=== PATIENT | female | born 1980 | race Caucasian/White ===

== ENCOUNTER → 2016-06-25 | Outpatient (CLI) | payer BC ==
--- NOTE | 2016-06-28 08:23 | MM ---
Reason for exam: clinical finding. Baseline mammogram. History: Took hormonal contraceptives for 2 years beginning at age 23. Indicated problem(s): palpable abnormality in the left breast. Physical Findings: Nurse Summary: 0.5cm nodule in the left breast at 12, 1 and 5 o'clock (nurse kp). MG Diagnostic Mammo w CAD RADHA Bilateral CC and MLO view(s) were taken. ML and spot compression MLO view(s) were taken of the right breast. Finding: There is a typically benign equal density (isodense), partially obscured mass in the right breast. There is no discrete abnormality at areas in left breast marked by BB. These results were verbally communicated with the patient and result sheet given to the patient on 06/24/16. ASSESSMENT: Probably benign, BI-RAD 3 RECOMMENDATION: Follow-up diagnostic mammogram of both breasts in 6 months. Ultrasound of the left breast in 6 months.
--- NOTE | 2016-06-28 08:25 | USB ---
Reason for exam: clinical finding. History: Took hormonal contraceptives for 2 years beginning at age 23. Indicated problem(s): palpable abnormality in the left breast. US Breast LT Left breast ultrasound including all four quadrants, the retroareolar region and axilla demonstrates a 8 x 4 x 8mm lobular, cystic lesion at 12 o'clock, a 5 x 3 x 6mm mixed lesion at 1 o'clock, a 7 x 3 x 5mm oval, mixed lesion at 1 o'clock, a 7 x 2 x 3mm oval, mixed lesion at 4 o'clock and a 7 x 3 x 6mm oval, cystic lesion at 10 o'clock. These results were verbally communicated with the patient and result sheet given to the patient on 06/25/16. ASSESSMENT: Probably benign, BI-RAD 3 RECOMMENDATION: Ultrasound of the left breast in 6 months.
== END | disposition home or self-care (01) ==
LOC: RADMAMWWP 15:13
PROVIDERS: ATTEND Internal Medicine
DX: N63 Unspecified lump in breast (principal)
CPT/HCPCS: 76641; G0204

== ENCOUNTER → 2017-01-10 | Outpatient (CLI) | payer BC ==
--- NOTE | 2017-01-10 11:51 | XR ---
EXAMINATION TYPE: XR orbit detect foreign body DATE OF EXAM: 01/10/2017 COMPARISON: NONE HISTORY: Pre-MRI clearance. Metal injury per patient. TECHNIQUE: Cottrell and Pritesh frontal view as well as true lateral view of orbits is performed. FINDINGS: No metallic intraorbital foreign body is seen to prevent MRI study. IMPRESSION: As above
== END | disposition home or self-care (01) ==
LOC: RADXRMAIN 11:07
PROVIDERS: ATTEND Orthopaedic Surgery
DX: Z01.818 Encounter for other preprocedural examination (principal)
CPT/HCPCS: 70030

== ENCOUNTER → 2017-03-24 | Outpatient (CLI) | payer BC ==
--- NOTE | 2017-03-25 07:04 | MM ---
Reason for exam: follow-up at short interval from prior study. Last mammogram was performed 9 months ago. History: Took hormonal contraceptives for 2 years beginning at age 23. Physical Findings: Nurse did not find any significant physical abnormalities on exam. MG Diagnostic Mammo w CAD RADHA Bilateral CC, MLO, LM, spot compression MLO, and spot compression CC view(s) were taken. Prior study comparison: June 25, 2016, bilateral MG diagnostic mammo w CAD RADHA. The breast tissue is heterogeneously dense. This may lower the sensitivity of mammography. Nodular areas of asymmetric density in both upper and lower breasts on the MLO view appear increased from prior. However, on additional views, the finding disperse compatible with superior position shadows. These results were verbally communicated with the patient and result sheet given to the patient on 03/24/17. ASSESSMENT: Negative, BI-RAD 1 RECOMMENDATION: Routine screening mammogram of both breasts at age 41. (unless clinical indication to start sooner)
== END ==
LOC: RADMAMWWP 14:15
PROVIDERS: ATTEND Internal Medicine
DX: R92.8 Other abnormal and inconclusive findings on diagnostic imaging of breast (principal)

== ENCOUNTER 2019-02-01 22:03 | Emergency (ER) | payer BC ==
[2019-02-01 22:47] LABS: Basophils # (A) 0.1 k/uL (0-0.2); Basophils % (A) 1 %; Eosinophils # (A) 0.1 k/uL (0-0.7); Eosinophils % (A) 1 %; HCT 41.5 % (34.0-46.0); HGB 13.9 gm/dL (11.4-16.0); Lymphocytes # (A) 2.4 k/uL (1.0-4.8); Lymphocytes % (A) 16 %; MCH 32.4 pg (25.0-35.0); MCHC 33.5 g/dL (31.0-37.0); MCV 96.6 fL (80.0-100.0); Mean Platelet Volume 5.8; Monocytes # (A) 0.8 k/uL (0-1.0); Monocytes % (A) 5 %; Neutrophils # (A) 11.2 k/uL (1.3-7.7); Neutrophils % (A) 75 %; Platelet Count 284 k/uL (150-450); RBC 4.29 m/uL (3.80-5.40); WBC 14.9 k/uL (3.8-10.6)
[2019-02-01 22:55] LABS: ALT 20 U/L (9-52); AST 21 U/L (14-36); African American GFR (CKD) >90 (>60 ml/min/1.73 sqM); Albumin 4.5 g/dL (3.5-5.0); Alkaline Phosphatase 76 U/L (38-126); Anion Gap 12 mmol/L; Blood Urea Nitrogen 7 mg/dL (7-17); Calcium 9.4 mg/dL (8.4-10.2); Carbon Dioxide 24 mmol/L (22-30); Chloride 103 mmol/L (98-107); Glucose 115 mg/dL (74-99); INR 0.9 (<1.2); Partial Thromboplastin Time 28.4 sec (22.0-30.0); Potassium 3.8 mmol/L (3.5-5.1); Prothrombin Time 9.5 sec (9.0-12.0); Sodium 139 mmol/L (137-145); Total Bilirubin 0.3 mg/dL (0.2-1.3); Total Protein 7.9 g/dL (6.3-8.2)
[2019-02-01 23:08] LABS: Appearance,Urine Clear (Clear); Bilirubin,Urine Negative (Negative); Blood,Urine Negative (Negative); Color,Urine Light Yellow; Glucose,Urine (UA) Negative (Negative); Ketones,Urine Negative (Negative); Leukocyte Esterase,Urine Small (Negative); Nitrite,Urine Negative (Negative); PH, Urine 5.5 (5.0-8.0); Protein,Urine Negative (Negative); RBC,Urine 1 /hpf (0-5); Specific Gravity,Urine 1.003 (1.001-1.035); Squamous Epithelial Cell,Urine 2 /hpf (0-4); Urobilinogen,Urine <2.0 mg/dL (<2.0); WBC,Urine 5 /hpf (0-5)
--- NOTE | 2019-02-01 23:41 | CT ---
EXAMINATION TYPE: CT abdomen pelvis w con DATE OF EXAM: 02/01/2019 COMPARISON: None HISTORY: Patient presents with RLQ pain and fever. CT DLP: 1465.4 mGycm Automated exposure control for dose reduction was used. TECHNIQUE: Helical acquisition of images was performed from the lung bases through the pelvis. CONTRAST: Performed without Oral Contrast and with IV Contrast, patient injected with 100mL mL of Isovue 300. FINDINGS: Lung bases are clear of consolidation. There is no pleural effusion. Heart size is normal. There is n o pericardial effusion. Liver spleen stomach pancreas gallbladder appear normal. Bile ducts are not dilated. There is no adrenal mass. Kidneys show satisfactory contrast opacification. There is no hydronephrosi s. Ureters are not dilated. There is no retroperitoneal adenopathy. Bladder distends smoothly. There is some free fluid in the pelvis. There are multiple cysts on the left ovary that measure up to 3.7 c m. Uterus is tilted to the right side. There is 3.3 cm cyst on the right ovary. There is no inguinal hernia. There is no mesenteric edema. There is no evidence of a bowel obstructio n. Appendix appears normal. There is no evidence of free air. The lumbar spine is intact. Bony pelvis appears intact. IMPRESSION: BILATERAL LARGE OVARIAN CYSTS. FREE FLUID IN THE CUL-DE-SAC. NORMAL APPENDIX. FLUID HAS LOW DENSITY a nd does NOT APPEAR TO BE HEMORRHAGIC. THIS COULD RELATE TO PID IN THIS PATIENT WITH A FEVER..
[2019-02-02] MEDS ORDERED: cefTRIAXone 250 MG VIAL IM STA (00:13)
[2019-02-02] MEDS ORDERED: metroNIDAZOLE 500 MG TAB PO STA (00:13)
[2019-02-02] MEDS ORDERED: DOXYCYCLINE 100 MG CAP PO STA (00:13)
--- NOTE | 2019-02-02 00:16 | ED ---
General Adult HPI - General Chief complaint: Urogenital Stated complaint: fever, cramps Time Seen by Provider: 02/01/19 22:49 Source: patient Mode of arrival: ambulatory Limitations: no limitations - History of Present Illness Initial comments: 38-year-old female patient presents to the emergency department today for evaluation of pelvic pain, low back pain, and fever. Patient's a she's had symptoms for the last 2-3 days. Patient denies any hematuria, dysuria, urinary frequency, urinary urgency. Denies any abnormal vaginal bleeding or discharge. Patient is concerned because she did have a one night stand a couple of weeks ago and is concerned she may have contracted a sexually transmitted infection. She denies any nausea, vomiting, constipation, or diarrhea. Denies any history of abdominal surgery. Patient denies any recent rash, shortness breath, chest pain, numbness, tingling, dizziness, weakness, headache, visual changes, or any other complaints. - Related Data Previous Rx's Medication Instructions Recorded Acetaminophen-Codeine 300-30mg 1 each PO Q6H PRN #10 tablet 03/03/15 [Tylenol #3] Ofloxacin 0.3% Ophth Soln [Ocuflox 2 drops RIGHT EYE QID 7 Days ml 03/03/15 Ophth Soln] Doxycycline [Vibramycin] 100 mg PO BID 14 Days #28 capsule 02/02/19 Allergies Allergy/AdvReac Type Severity Reaction Status Date / Time grass pollen Allergy Itching Verified 02/01/19 22:08 Review of Systems ROS Statement: Those systems with pertinent positive or pertinent negative responses have been documented in the HPI. ROS Other: All systems not noted in ROS Statement are negative. Past Medical History Past Medical History: No Reported History History of Any Multi-Drug Resistant Organisms: None Reported Past Surgical History: Tubal Ligation Additional Past Surgical History / Comment(s): vocal cord/polyps removed ectopic. PRC Past Psychological History: Anxiety, Depression Smoking Status: Current every day smoker Past Alcohol Use History: Occasional Past Drug Use History: Marijuana General Exam Limitations: no limitations General appearance: alert, in no apparent distress, other (Physical well- developed, well-nourished adult female patient in no acute distress. Vital signs upon presentation are temperature 99.5F, pulse 1:15, respirations 20, blood pressure 160/80, pulse ox 99% on room air.) Eye exam: Present: normal appearance, PERRL, EOMI. Absent: scleral icterus, conjunctival injection, periorbital swelling ENT exam: Present: normal exam, normal oropharynx, mucous membranes moist Respiratory exam: Present: normal lung sounds bilaterally. Absent: respiratory distress, wheezes, rales, rhonchi, stridor Cardiovascular Exam: Present: regular rate, normal rhythm, normal heart sounds. Absent: systolic murmur, diastolic murmur, rubs, gallop, clicks GI/Abdominal exam: Present: soft, tenderness (Right lower quadrant tenderness), normal bowel sounds. Absent: distended, guarding, rebound, rigid External exam: Present: normal external exam Speculum exam: Present: erythema, cervical discharge (Yellow, frothy) By manual exam: Present: cervical motion tenderness, adnexal tenderness Neurological exam: Present: alert, oriented X3, CN II-XII intact Psychiatric exam: Present: normal affect Skin exam: Present: warm, dry, intact, normal color. Absent: rash Course Vital Signs 02/01/19 02/02/19 22:05 00:49 Temperature 99.5 F 99.0 F Pulse Rate 115 H 102 H Respiratory 20 18 Rate Blood Pressure 160/80 136/78 O2 Sat by Pulse 99 100 Oximetry Medical Decision Making - Medical Decision Making 38-year-old female patient presented to the emergency department today for evaluation of pelvic pain and fever. Physical examination did reveal right lower quadrant tenderness. Labs reviewed and did reveal white blood cell count of 14.9. CT abdomen and pelvis was obtained and did show free fluid in the cul-de-sac. Normal appendix. Given patient's concern for sexually transmitted infection, pelvic exam was performed, did reveal vaginal discharge cervical motion tenderness and bilateral adnexal tenderness. Patient was positive for Trichomonas. We did send cultures for gonorrhea and chlamydia. Given patient's symptoms we will treat for pelvic inflammatory disease. She was given 250 mg IM Rocephin, 2000 mg of Flagyl by mouth, and started on doxycycline. She'll be discharged to follow-up with gynecology for further evaluation. Return parameters were discussed in detail. She verbalizes understanding and agrees with this plan. - Lab Data Result diagrams: 02/01/19 22:33 02/01/19 22:33 Lab Results 02/01/19 02/01/19 02/01/19 Range/Units 22:10 22:10 22:33 WBC 14.9 H (3.8-10.6) k/uL RBC 4.29 (3.80-5.40) m/uL Hgb 13.9 (11.4-16.0) gm/dL Hct 41.5 (34.0-46.0) % MCV 96.6 (80.0-100.0) fL MCH 32.4 (25.0-35.0) pg MCHC 33.5 (31.0-37.0) g/dL RDW 13.0 (11.5-15.5) % Plt Count 284 (150-450) k/uL Neutrophils % 75 % Lymphocytes % 16 % Monocytes % 5 % Eosinophils % 1 % Basophils % 1 % Neutrophils # 11.2 H (1.3-7.7) k/uL Lymphocytes # 2.4 (1.0-4.8) k/uL Monocytes # 0.8 (0-1.0) k/uL Eosinophils # 0.1 (0-0.7) k/uL Basophils # 0.1 (0-0.2) k/uL PT (9.0-12.0) sec INR (<1.2) APTT (22.0-30.0) sec Sodium (137-145) mmol/L Potassium (3.5-5.1) mmol/L Chloride (98-107) mmol/L Carbon Dioxide (22-30) mmol/L Anion Gap mmol/L BUN (7-17) mg/dL Creatinine (0.52-1.04) mg/dL Est GFR (CKD-EPI)AfAm (>60 ml/min/1.73 sqM) Est GFR (CKD-EPI)NonAf (>60 ml/min/1.73 sqM) Glucose (74-99) mg/dL Plasma Lactic Acid Denzel (0.7-2.0) mmol/L Calcium (8.4-10.2) mg/dL Total Bilirubin (0.2-1.3) mg/dL AST (14-36) U/L ALT (9-52) U/L Alkaline Phosphatase (38-126) U/L Total Protein (6.3-8.2) g/dL Albumin (3.5-5.0) g/dL Urine Color Light Yellow Urine Appearance Clear (Clear) Urine pH 5.5 (5.0-8.0) Ur Specific [place] 1.003 (1.001-1.035) Urine Protein Negative (Negative) Urine Glucose (UA) Negative (Negative) Urine Ketones Negative (Negative) Urine Blood Negative (Negative) Urine Nitrite Negative (Negative) Urine Bilirubin Negative (Negative) Urine Urobilinogen <2.0 (<2.0) mg/dL Ur Leukocyte Esterase Small H (Negative) Urine RBC 1 (0-5) /hpf Urine WBC 5 (0-5) /hpf Ur Squamous Epith Cells 2 (0-4) /hpf Urine HCG, Qual Not Detected (Not Detectd) Trichomonas Ag (Rapid) (Negative) 02/01/19 02/01/19 02/01/19 Range/Units 22:33 22:33 22:33 WBC (3.8-10.6) k/uL RBC (3.80-5.40) m/uL Hgb (11.4-16.0) gm/dL Hct (34.0-46.0) % MCV (80.0-100.0) fL MCH (25.0-35.0) pg MCHC (31.0-37.0) g/dL RDW (11.5-15.5) % Plt Count (150-450) k/uL Neutrophils % % Lymphocytes % % Monocytes % % Eosinophils % % Basophils % % Neutrophils # (1.3-7.7) k/uL Lymphocytes # (1.0-4.8) k/uL Monocytes # (0-1.0) k/uL Eosinophils # (0-0.7) k/uL Basophils # (0-0.2) k/uL PT 9.5 (9.0-12.0) sec INR 0.9 (<1.2) APTT 28.4 (22.0-30.0) sec Sodium 139 (137-145) mmol/L Potassium 3.8 (3.5-5.1) mmol/L Chloride 103 (98-107) mmol/L Carbon Dioxide 24 (22-30) mmol/L Anion Gap 12 mmol/L BUN 7 (7-17) mg/dL Creatinine 0.58 (0.52-1.04) mg/dL Est GFR (CKD-EPI)AfAm >90 (>60 ml/min/1.73 sqM) Est GFR (CKD-EPI)NonAf >90 (>60 ml/min/1.73 sqM) Glucose 115 H (74-99) mg/dL Plasma Lactic Acid Denzel 1.0 (0.7-2.0) mmol/L Calcium 9.4 (8.4-10.2) mg/dL Total Bilirubin 0.3 (0.2-1.3) mg/dL AST 21 (14-36) U/L ALT 20 (9-52) U/L Alkaline Phosphatase 76 (38-126) U/L Total Protein 7.9 (6.3-8.2) g/dL Albumin 4.5 (3.5-5.0) g/dL Urine Color Urine Appearance (Clear) Urine pH (5.0-8.0) Ur Specific [place] (1.001-1.035) Urine Protein (Negative) Urine Glucose (UA) (Negative) Urine Ketones (Negative) Urine Blood (Negative) Urine Nitrite (Negative) Urine Bilirubin (Negative) Urine Urobilinogen (<2.0) mg/dL Ur Leukocyte Esterase (Negative) Urine RBC (0-5) /hpf Urine WBC (0-5) /hpf Ur Squamous Epith Cells (0-4) /hpf Urine HCG, Qual (Not Detectd) Trichomonas Ag (Rapid) (Negative) 02/02/19 Range/Units 00:29 WBC (3.8-10.6) k/uL RBC (3.80-5.40) m/uL Hgb (11.4-16.0) gm/dL Hct (34.0-46.0) % MCV (80.0-100.0) fL MCH (25.0-35.0) pg MCHC (31.0-37.0) g/dL RDW (11.5-15.5) % Plt Count (150-450) k/uL Neutrophils % % Lymphocytes % % Monocytes % % Eosinophils % % Basophils % % Neutrophils # (1.3-7.7) k/uL Lymphocytes # (1.0-4.8) k/uL Monocytes # (0-1.0) k/uL Eosinophils # (0-0.7) k/uL Basophils # (0-0.2) k/uL PT (9.0-12.0) sec INR (<1.2) APTT (22.0-30.0) sec Sodium (137-145) mmol/L Potassium (3.5-5.1) mmol/L Chloride (98-107) mmol/L Carbon Dioxide (22-30) mmol/L Anion Gap mmol/L BUN (7-17) mg/dL Creatinine (0.52-1.04) mg/dL Est GFR (CKD-EPI)AfAm (>60 ml/min/1.73 sqM) Est GFR (CKD-EPI)NonAf (>60 ml/min/1.73 sqM) Glucose (74-99) mg/dL Plasma Lactic Acid Denzel (0.7-2.0) mmol/L Calcium (8.4-10.2) mg/dL Total Bilirubin (0.2-1.3) mg/dL AST (14-36) U/L ALT (9-52) U/L Alkaline Phosphatase (38-126) U/L Total Protein (6.3-8.2) g/dL Albumin (3.5-5.0) g/dL Urine Color Urine Appearance (Clear) Urine pH (5.0-8.0) Ur Specific [place] (1.001-1.035) Urine Protein (Negative) Urine Glucose (UA) (Negative) Urine Ketones (Negative) Urine Blood (Negative) Urine Nitrite (Negative) Urine Bilirubin (Negative) Urine Urobilinogen (<2.0) mg/dL Ur Leukocyte Esterase (Negative) Urine RBC (0-5) /hpf Urine WBC (0-5) /hpf Ur Squamous Epith Cells (0-4) /hpf Urine HCG, Qual (Not Detectd) Trichomonas Ag (Rapid) Positive H (Negative) - Radiology Data Radiology results: report reviewed, image reviewed CT abdomen and pelvis with contrast was obtained. Report was reviewed in its entirety. Impression by Dr. Laureano shows bilateral large ovarian cyst. Free fluid in the cul-de-sac. Normal appendix. Fluid has low density and does not appear to be hemorrhagic. This could relate to PID in this patient with a fever. Disposition Clinical Impression: Pelvic inflammatory disease Disposition: HOME SELF-CARE Condition: Good Instructions (If sedation given, give patient instructions): Pelvic Inflammatory Disease (ED), Sexually Transmitted Diseases (ED) Additional Instructions: Take medication as directed. Complete antibiotic prescription in full, even if you are feeling better. Follow-up with your primary care physician for recheck in 1-2 days. Follow-up with grouter helper for further evaluation as soon as possible. Return to the emergency department immediately for any new, worsening, or concerning symptoms. Prescriptions: Doxycycline [Vibramycin] 100 mg PO BID 14 Days #28 capsule Is patient prescribed a controlled substance at d/c from ED?: No Referrals: Doroteo Dobbs MD [Primary Care Provider] - 1-2 days Marychuy Miranda DO [Doctor of Osteopathic Medicine] - 1-2 days Time of Disposition: 00:15
[2019-02-02 00:51] VITALS: BP 136/78; PULSE 102; RESP 18; TEMP 99
[2019-02-02 14:04] LABS: HIV 1 AB Non-Reactive (Non-Reactive); HIV 2 AB Non-Reactive (Non-Reactive); HIV AB P24 Non-Reactive (Non-Reactive); HIV P24 AG Non-Reactive (Non-Reactive)
[2019-02-04 16:26] LABS: C. trachomatis,PCR Negative (Neg,Equiv); Chlamydia trachomatis Source Vagina
[2019-02-04 16:38] LABS: N. gonorrhoeae,PCR Positive (Neg,Equiv); Neisseria Source Vagina
== END 2019-02-02 00:48 | disposition home or self-care (01) ==
LOC: EC 22:03
DX: N73.9 Female pelvic inflammatory disease, unspecified (principal); A59.9 Trichomoniasis, unspecified; F17.200 Nicotine dependence, unspecified, uncomplicated; Z91.048 Other nonmedicinal substance allergy status; Z98.51 Tubal ligation status
CPT/HCPCS: 36415 ×2; 80053; 83605; 85025; 85610; 85730; 81001; 81025; 87040; 87808; 87491; 87591; 87070; 87086; 87390; 74177; 99284; 96372; J0696; Q9967

== ENCOUNTER → 2020-12-03 | Outpatient (CLI) | payer OTHER ==
[2020-12-03 23:22] LABS: Basophils # (A) 0.04 X 10*3/uL (0.00-0.10); Basophils % (A) 0.5 %; Eosinophils # (A) 0.08 X 10*3/uL (0.04-0.35); HCT 39.1 % (37.2-46.3); Lymphocytes # (A) 2.45 X 10*3/uL (0.90-5.00); MCH 31.6 pg (27.0-32.0); MCHC 33.2 g/dL (32.0-37.0); MCV 95.1 fL (80.0-97.0); Mean Platelet Volume 10.5 fL (9.5-12.2); Monocytes # (A) 0.54 X 10*3/uL (0.20-1.00); Monocytes % (A) 6.8 %; Neutrophils # (A) 4.77 X 10*3/uL (1.80-7.70); Neutrophils % (A) 60.4 %; Platelet Count 278 X 10*3/uL (140-440); RBC 4.11 X 10*6/uL (4.10-5.20); RDW 14.3 % (11.5-14.5)
[2020-12-04 17:11] LABS: African American GFR (CKD) 126.5 (60.0-200.0); Albumin 4.4 g/dL (3.80-4.90); Albumin/Globulin Ratio 1.76 (1.60-3.17); Anion Gap 10.7 mmol/L (4.00-12.00); BUN/Creat Ratio 12.86 Ratio (12.00-20.00); Calcium 8.9 mg/dL (8.7-10.3); Carbon Dioxide 22.3 mmol/L (21.6-31.8); Chol/HDL Ratio 3.69; Globulin 2.5 g/dL (1.6-3.3); LDL Cholesterol,Calculated 117.8 mg/dL (0.0-131.0); Non-African American GFR(CKD) 109.1 (60.0-200.0); Potassium 3.7 mmol/L (3.5-5.5); Total Bilirubin 0.4 mg/dL (0.2-1.2); Total Protein 6.9 g/dL (6.2-8.2); VLDL Calculation 14.2 mg/dL (5.00-40.00)
[2020-12-04 17:17] LABS: T4, Free (Free Thyroxine) 1.1 ng/dL (0.80-1.80)
[2020-12-05 11:02] LABS: Erythrocyte Sedimentation Rate 16 mm/Hr (0-20)
== END | disposition home or self-care (01) ==
LOC: LABWHC1 16:19
PROVIDERS: ATTEND Internal Medicine
DX: Z00.00 Encounter for general adult medical examination without abnormal findings (principal); R10.9 Unspecified abdominal pain; G89.29 Other chronic pain; R11.0 Nausea
CPT/HCPCS: 36415; 80053; 80061; 82150; 83690; 84439; 84443; 85025; 85652

== ENCOUNTER → 2020-12-09 | Outpatient (CLI) | payer OTHER ==
--- NOTE | 2020-12-10 06:58 | CT ---
EXAMINATION TYPE: CT abdomen pelvis w con DATE OF EXAM: 12/09/2020 HISTORY: Abdominal and pelvic pain, fever and nausea and vomiting x1.[address] DLP: 1411mGycm Automated Exposure Control for Dose Reduction was Utilized. CONTRAST: CT scan of the abdomen and pelvis is performed with oral and with IV Contrast, patient injected with 100ml mL of Isovue 300. COMPARISON: CT abdomen and pelvis February 01, 2019 FINDINGS: LUNG BASES: [id number] central anterior linear scarring and/or atelectasis. LIVER/GB: No significant abnormality is appreciated. PANCREAS: No significant abnormality is seen. SPLEEN: No significant abnormality is seen. ADRENALS: No significant abnormality is seen. KIDNEYS: No significant abnormality is seen. BOWEL: Oral contrast reaches level of the hepatic flexure. No suspicious small or large bowel dilatat ion. Normal-appearing appendix in the right pelvis. Mild wall thickening in the left and sigmoid colo n presumed chronic to poor distention. No surrounding inflammatory change noted. UTERUS/ADNEXA: Anteverted uterus projects to right of midline. No free fluid in pelvis currently. Pro minent lower uterine segment and/or cervix redemonstrated. Correlate clinically with direct visualiza tion and Pap smear is advised. This however has similar appearance to prior study. LYMPH NODES: No greater than 1cm abdominal or pelvic lymph nodes are appreciated. OSSEOUS STRUCTURES: Mild disc space narrowing L3-L4 and L5-S1 levels. OTHER: No significant additional abnormality is seen. IMPRESSION: No new or acute findings identified on current study.
== END | disposition home or self-care (01) ==
LOC: RADCTMAIN 14:58
PROVIDERS: ATTEND Internal Medicine
DX: R10.9 Unspecified abdominal pain (principal); R10.2 Pelvic and perineal pain; R11.2 Nausea with vomiting, unspecified; R50.9 Fever, unspecified
CPT/HCPCS: 74177; Q9967

== ENCOUNTER 2021-07-17 13:05 | Inpatient (IN) | payer OTHER ==
[~2021-07-17 13:05] MED LIST: DEXAMETHASONE SOD PHOSPHATE 4 MG/ML 1 ML VIAL IV ONE; HYDROmorphone 0.5 MG/0.5 ML SYRINGE IVP PRN; LIDOCAINE 1% (10MG/ML) FOR IV START INTRADERMA PRN; ONDANSETRON 4 MG/2 ML VIAL IVP ONE
[2021-07-17] MEDS: LACTATED RINGERS 1,000 ML IV SCH ×3 (13:45→20:00)
[2021-07-17] MEDS ORDERED: fentaNYL (PF) 50 MCG/ML 2 ML AMP ONE (14:56)
[2021-07-17] MEDS ORDERED: MIDAZOLAM 2 MG/2 ML VIAL ONE (14:56)
[2021-07-17] MEDS ORDERED: KETOROLAC 15 MG/ML 1 ML VIAL ONE (14:56)
[2021-07-17] MEDS ORDERED: HYDROmorphone (PF) 1 MG/ML ONE (14:56)
[2021-07-17] MEDS ORDERED: LIDOCAINE 1% INJ 10MG/ML (20 ML MDV) ONE (14:56)
[2021-07-17] MEDS ORDERED: PROPOFOL 10 MG/ML 20 ML VIAL IV ONE (14:56)
[2021-07-17] MEDS ORDERED: HYDROmorphone 0.2 MG/1 ML SYRINGE IVP PRN (15:10)
[2021-07-17] MEDS ORDERED: HYDROcodone/APAP 5-325MG 1 EACH TAB PO PRN (15:10)
[2021-07-17] MEDS ORDERED: TEMAZEPAM 15 MG CAP PO PRN (15:10)
[2021-07-17] MEDS ORDERED: diphenhydrAMINE 25 MG CAP PO PRN (15:10)
[2021-07-17] MEDS ORDERED: ONDANSETRON 4 MG/2 ML VIAL IVP PRN (15:10)
[2021-07-17] MEDS ORDERED: VANCOMYCIN IV PER PHARMACY 1 EACH MISC MISCELLANE PRN (15:17)
[2021-07-17] MEDS ORDERED: diazePAM 2 MG TAB PO PRN (15:24)
[2021-07-17] MEDS ORDERED: ceFAZolin 1,000 MG in SODIUM CHLORIDE 0.9% 1,000 ML IRRIGATION ONE (15:28)
[2021-07-17] MEDS ORDERED: GENTAMICIN PER PHARMACY MISCELLANE SCH (15:30)
[2021-07-17] MEDS ORDERED: GENTAMICIN 370 MG in SODIUM CHLORIDE 0.9% 100 ML IVPB PRN (15:30)
[2021-07-17] MEDS ORDERED: VANCOMYCIN 1,500 MG in SODIUM CHLORIDE 0.9% 250 ML IVPB PRN (15:30)
[2021-07-17] MEDS: fentaNYL (PF) 50 MCG/ML 2 ML AMP IVP ONE ×2 (15:59→16:04)
--- NOTE | 2021-07-17 16:04 | P.OP ---
Date of Procedure: 07/17/21 Procedure(s) Performed: PREOPERATIVE DIAGNOSES: 1. Right ring finger open PIP joint dislocation with deep infection POSTOPERATIVE DIAGNOSES: 1. Right ring finger open PIP joint dislocation with deep infection PROCEDURES PERFORMED: 1. Right ring finger open wound incision and drainage with sharp excisional debridement using knife of skin, subcutaneous, fascia, tendon] 2. Packing of resultant wound with iodoform gauze ANESTHESIA: Gen. BARIATRIC SURGEON: Irene Irving PA-C (assistance with exposure, hemostasis, retraction, fixation, closure, dressing, splint) COMPLICATIONS: None ESTIMATED BLOOD LOSS: 5 mL. DISPOSITION: To post-anesthesia care unit INDICATIONS: Gypsy is a 41-year-old [id number] female with a history of deep infection involving the right ring finger. She had an open dislocation of the PIP joint with a volar wound approximately 1 week ago which was reduced in the emergency room and closed. She had been on antibiotics consisting of Keflex and Augmentin but has developed pus drainage from the wound and the wound has completely . I suspect a deep infection into the flexor tendon area as well as the PIP joint. She presents to the operating room for exploration, incision and drainage and surgical treatment of the infection. Consent has been obtained after discussion of the risks of incision and drainage of this abscess as being inclusive of, but not limited to: Bleeding, further infection, scarring, discomfort, blood vessel, tendon, cartilage/joint and/or nerve damage, compartment syndrome, failure to relieve symptoms, persistence or recurrence and/or worsening of symptoms or problems, need for further surgery, stiffness of the finger, loss of finger, , anesthesia risks, and other risks. PROCEDURE: After appropriate consent was obtained, the patient was taken to the operating room placed in the supine position. Anesthesia was initiated, and after confirmation of adequate anesthesia, the patient was carefully positioned. Care was taken to make sure that all pressure points were adequately padded. Prepping and draping were completed in the usual aseptic fashion using ChloraPrep. Timeout was called, confirming patient identity, side, and procedure. Primary culture was taken as pus was draining through the open wound. A Mariela type incision was created along the ring finger, incorporating the open wound into the incision with 2 extra limbs. The resulting triangle flaps of tissue were retracted and sutured apart with careful dissection down to the flexor tendon. The flexor tendons appeared to have some degree of gross contamination and meticulous tweezer ring of the debris within the flexor tendons was performed. The flexor tendons appeared to be intact. Beneath the flexor tendons, significant inflammatory/infected material was seen which was carefully removed using blunt dissection as well as some minor sharp dissection. The flexor tendon area did have pus which was removed using lavage. The PIP joint was then dislocated and the PIP joint itself did contain some pus and this was removed also with lavage. Thorough meticulous cleansing of the joint was performed. No foreign bodies were noted within the PIP joint. The PIP joint once reduced was interrogated and found to be unstable in extension but stable after approximately 15 of flexion of the joint. The joint was able to be easily reduced after thorough lavage of the joint with pulsatile saline. Approximately 1.5 L of saline was pulsed into the wound along with a wound soak using dilute chlorhexidine solution followed by rinsing thoroughly. The wound was gently packed with a small amount of iodoform and partial closure of the Mariela type incision was performed using 2-3 loose 4-0 nylon sutures. Hemostasis was performed with pressure over the wound and application of a snug dressing. Dressing was performed using sterile gauze over the packing, followed by Wendi dressing and Drew wrap. The finger was placed in a resting position of approximately 30 of flexion. Patient tolerated the procedure well and taken to recovery room in stable condition. Sponge counts were correct.
[2021-07-17] MEDS ORDERED: HYDROmorphone 0.5 MG/0.5 ML SYRINGE IVP ONE (16:17)
[2021-07-17] MEDS: MEPERIDINE 50 MG/ML SYRINGE IVP ONE ×3 (16:29→17:43)
[2021-07-17] MEDS: MIDAZOLAM 2 MG/2 ML VIAL IV PRN ×2 (16:37→16:50)
[2021-07-17] MEDS ORDERED: MEPERIDINE 50 MG/ML SYRINGE IVP ONE (17:37)
[2021-07-17] MEDS ORDERED: VANCOMYCIN 1,500 MG in SODIUM CHLORIDE 0.9% 250 ML IVPB ONE (18:30)
[2021-07-17 18:57] LABS: African American GFR (CKD) >90 (>60 ml/min/1.73 sqM); Non-African American GFR(CKD) >90 (>60 ml/min/1.73 sqM)
[2021-07-17] MEDS ORDERED: GENTAMICIN 520 MG in SODIUM CHLORIDE 0.9% 100 ML IVPB ONE (19:00)
[2021-07-17] MEDS: HYDROmorphone 1 MG/ML 1 ML SYRINGE IVP PRN ×2 (19:48→23:18)
[2021-07-18] MEDS: CEFEPIME 2 GM in SODIUM CHLORIDE 0.9% 100 ML IVPB SCH ×4 (00:06→23:14)
--- NOTE | 2021-07-18 01:07 | P.CONS ---
History of Present Illness - Reason for Consult Consult date: 07/17/21 - History of Present Illness Patient is a 41-year-old female with no known PMH who was admitted for a planned right fourth digit incision and drainage for deep infection. The patient initially sustained an injury to the right fourth digit when she fell roughly a week ago. She was initially seen in the emergency room and was given antibiotics but failed to improve and then developed pus at the site of the wound. The patient underwent the procedure earlier today. The patient was seen postoperatively on the surgical unit. She reported ongoing follow to 10 pain at the time of interview at the site of the surgery. She denied any additional complaints. She did not express and chest discomfort, shortness of breath, cough, fever, chills, nausea, vomiting, abdominal pain, diarrhea. She reports not taking any medications at home and denied any additional history. Review of systems: Pertinent positives and negatives as discussed in HPI, a complete review of systems was performed and all other systems are negative. Physical examination: General: non toxic, no distress, appears at stated age, obese Derm: no unusual rashes/lesions no unusual ecchymoses, warm, dry Head: atraumatic, normocephalic, symmetric Eyes: EOMI, no lid lag, anicteric sclera, pupils equal round reactive to light ENT: Nose and ears atraumatic, no thrush, no pharyngeal erythema Neck: No thyromegaly, no cervical lymphadenopathy, trachea midline, supple Mouth: no lip lesion, mucus membranes moist Cardiovascular: S1S2 reg, no murmur, positive posterior tibial pulse bilateral, no edema, capillary refill less than 2 seconds Lungs: CTA bilateral, no rhonchi, no rales , no accessory muscle use Abdominal: soft, nontender to palpation, no guarding, no appreciable organomegaly, normal bowel sounds Ext: no gross muscle atrophy, muscle strength 5 out of 5 in all 4 extremities grossly, no contractures, right fourth digit dressing in place Neuro: CN II-XI grossly intact, light touch intact all 4 extremities, finger to nose within normal limits, Psych: Alert, oriented, appropriate affect Assessment/plan Right fourth digit deep tissue infection status post incision and drainage -Defer management including pain control to the surgery service -Patient currently on cefepime and vancomycin -Continue pain control with Dilaudid -Currently on LR 100 mL/hr We appreciate this opportunity to be involved in this patient's care. We will follow the patient with you. For any further questions, please not hesitate to contact the [facility] inpatient team. Past Medical History Past Medical History: Musculoskeletal Disorder, Osteoarthritis (OA) Additional Past Medical History / Comment(s): fell & injured right ring finger on 07-05-21-wearing splint & dressing, entire hand very swollen History of Any Multi-Drug Resistant Organisms: None Reported Past Surgical History: Tubal Ligation Additional Past Surgical History / Comment(s): vocal cord/polyps removed, ectopic surg., right wrist proximal row carpectomy Past Anesthesia/Blood Transfusion Reactions: No Reported Reaction Past Psychological History: Anxiety, Depression Smoking Status: Current every day smoker Past Alcohol Use History: Occasional Additional Past Alcohol Use History / Comment(s): 1/2-1ppd, has smoked for approx. 22 yrs. Past Drug Use History: Marijuana Additional Drug Use History / Comment(s): occasional use - Past Family History Mother Family Medical History: Dementia, Thyroid Disorder Father Family Medical History: Coronary Artery Disease (CAD), Diabetes Mellitus Medications and Allergies Home Medications Medication Instructions Recorded Confirmed Type Acetaminophen [Tylenol Arthritis] 650 mg PO Q6H PRN 07/16/21 07/16/21 History Amoxic-Pot Clav 875-125Mg 1 tab PO BID 07/16/21 07/16/21 History [Augmentin 875-125] Cephalexin [Keflex] 500 mg PO Q12HR 07/16/21 07/16/21 History HYDROcodone/APAP 5-325MG [[place] 1 - 2 tab PO Q6HR PRN 07/16/21 07/17/21 History 5-325] Allergies Allergy/AdvReac Type Severity Reaction Status Date / Time grass pollen Allergy Itching Verified 07/16/21 12:38 Physical Exam Vitals: Vital Signs Temp Pulse Pulse Pulse Resp BP Pulse Ox 07/17/21 19:03 74 116/78 90 L 07/17/21 18:48 74 101/65 95 07/17/21 18:33 64 105/70 93 L 07/17/21 18:18 63 111/74 95 07/17/21 18:10 97.7 F 69 103/65 95 07/17/21 17:30 68 18 117/63 92 L 07/17/21 17:16 73 18 112/57 93 L 07/17/21 17:00 75 18 116/58 94 L 07/17/21 16:45 64 18 121/59 99 07/17/21 16:30 65 18 155/72 98 07/17/21 16:15 76 18 167/102 100 07/17/21 15:56 97.9 F 90 20 158/104 100 07/17/21 13:42 98.0 F 72 16 121/68 97 Intake and Output 07/17/21 07/17/21 07/18/21 14:59 22:59 06:59 Intake Total 600 551 Output Total 5 Balance 600 546 Intake: IV 600 251 Intake, IV Titration 200 Amount Lactated Ringers 1,000 ml 200 @ 100 mls/hr IV .Q10H [facility] Rx#:[id number] Oral 100 Output: Estimated Blood Loss 5 Other: Weight 97.5 kg 97.5 kg Results CBC & Chem 7: 07/17/21 18:19 Labs: Microbiology - Last 24 Hours (Table) 07/17/21 15:50 Fungal Culture - Preliminary Finger - Right Fourth 07/17/21 15:50 Anaerobic Culture - Preliminary Finger - Right Fourth 07/17/21 15:50 Wound Culture - Preliminary Finger - Right Fourth
[2021-07-18] MEDS: LACTATED RINGERS 1,000 ML IV SCH ×3 (03:14→23:21)
[2021-07-18] MEDS: HYDROmorphone 1 MG/ML 1 ML SYRINGE IVP PRN ×7 (04:10→23:13)
[2021-07-18 09:15] LABS: Basophils # (A) 0.03 X 10*3/uL (0.00-0.10); Basophils % (A) 0.2 %; Eosinophils # (A) 0 X 10*3/uL (0.04-0.35); Eosinophils % (A) 0 %; HCT 37.8 % (37.2-46.3); HGB 12.3 g/dL (12.0-15.0); Immature Grans, Automated 0.2 %; MCH 33.2 pg (27.0-32.0); MCHC 32.5 g/dL (32.0-37.0); MCV 101.9 fL (80.0-97.0); Mean Platelet Volume 9.6 fL (9.5-12.2); Monocytes # (A) 0.81 X 10*3/uL (0.20-1.00); Monocytes % (A) 6.2 %; NRBC Per 100 WBC 0 /100 WBCS (0.0-0.0); Neutrophils # (A) 10.52 X 10*3/uL (1.80-7.70); Neutrophils % (A) 80.4 %; Platelet Count 367 X 10*3/uL (140-440); RBC 3.71 X 10*6/uL (4.10-5.20); RDW 14.4 % (11.5-14.5); WBC 13.09 X 10*3/uL (4.50-10.00)
[2021-07-18 09:28] LABS: ALT 37 U/L (8-44); AST 17 U/L (13-35); African American GFR (CKD) 106.9 (60.0-200.0); Albumin 3.7 g/dL (3.8-4.9); Albumin/Globulin Ratio 1.61 (1.60-3.17); Alkaline Phosphatase 66 U/L (41-126); BUN/Creat Ratio 11.38 Ratio (12.00-20.00); Blood Urea Nitrogen 9.1 mg/dL (9.0-27.0); Calcium 8.7 mg/dL (8.7-10.3); Carbon Dioxide 22.4 mmol/L (20.0-27.5); Chloride 103 mmol/L (96-109); Globulin 2.3 g/dL (1.6-3.3); Glucose 110 mg/dL (70-110); Non-African American GFR(CKD) 92.2 (60.0-200.0); Potassium 4.6 mmol/L (3.5-5.5); Sodium 138 mmol/L (135-145); Total Bilirubin <0.15 mg/dL (0.30-1.20)
[2021-07-18] MEDS: FLUCONAZOLE 150 MG TAB PO SCH (09:49)
[2021-07-18] MEDS: VANCOMYCIN 1,500 MG in SODIUM CHLORIDE 0.9% 250 ML IVPB SCH ×2 (09:52→20:16)
[2021-07-18 11:41] LABS: Erythrocyte Sedimentation Rate 54 mm/Hr (0-20)
--- NOTE | 2021-07-18 11:58 | P.PN ---
Subjective Progress Note Date: 07/18/21 Principal diagnosis: Right ring finger open wound infection Patient is seen at bedside this morning. She is postop day #1 from Right ring finger open wound incision and drainage with sharp excisional debridement of skin, subcutaneous, fascia, tendon. She has pain at the surgical site as expected but denies any new complaints. She denies numbness, tingling, negative for fever, chills, chest pain, shortness of breath or other Objective - Vital Signs Vital signs: Vital Signs Temp 98.1 F 07/18/21 08:00 Pulse 91 07/18/21 08:00 Resp 18 07/18/21 08:00 BP 128/70 07/18/21 08:00 Pulse Ox 97 07/18/21 08:00 Intake & Output 07/17/21 07/18/21 07/18/21 18:59 06:59 18:59 Intake Total 1151 Output Total 5 Balance 1146 Weight 97.5 kg Intake: IV 851 Intake, IV Titration 200 Amount Lactated Ringers 1,000 ml 200 @ 100 mls/hr IV .Q10H [facility] Rx#:[id number] Oral 100 Output: Estimated Blood Loss 5 Other: # Voids 3 - Exam Inspection reveals a benign appear bandage with no evidence of active bleeding or drainage. Neurovascular status is intact throughout the upper extremity with motor and sensation fully intact. Digits are warm and have brisk capillary refill. - Constitutional General appearance: Present: no acute distress - Labs CBC & Chem 7: 07/18/21 04:05 07/18/21 04:05 Labs: Abnormal Lab Results - Last 24 Hours (Table) 07/18/21 07/18/21 Range/Units 04:05 04:05 WBC 13.09 H (4.50-10.00) X 10*3/uL RBC 3.71 L (4.10-5.20) X 10*6/uL MCV 101.9 H (80.0-97.0) fL MCH 33.2 H (27.0-32.0) pg Neutrophils # 10.52 H (1.80-7.70) X 10*3/uL Eosinophils # 0 L (0.04-0.35) X 10*3/uL ESR 54 H (0-20) mm/Hr BUN/Creatinine Ratio 11.38 L (12.00-20.00) Ratio Total Bilirubin <0.15 L (0.30-1.20) mg/dL Total Protein 6.0 L (6.2-8.2) g/dL Albumin 3.7 L (3.8-4.9) g/dL Microbiology - Last 24 Hours (Table) 07/17/21 15:50 Gram Stain - Preliminary Finger - Right Fourth Wound Culture - Preliminary 07/17/21 15:50 Fungal Culture - Preliminary Finger - Right Fourth 07/17/21 15:50 Anaerobic Culture - Preliminary Finger - Right Fourth Assessment and Plan (1) Open dislocation of right ring finger Narrative/Plan: She will continue with routine postop orthopedic protocol including pain management, wound care/daily dressing changes/packing, IV antibiotics, DVT prophylaxis and medical management. ID also consulted. Will continue to monitor and make further recommendations as appropriate Current Visit: Yes Status: Acute Priority: Medium Code(s): S63.254A - UNSPECIFIED DISLOCATION OF RIGHT RING FINGER, INIT ENCNTR; S61.204A - UNSP OPEN WOUND OF R RNG FNGR W/O DAMAGE TO NAIL, INIT SNOMED Code(s): 48164235 Time with Patient: Less than 30
[2021-07-18] MEDS: diphenhydrAMINE 25 MG CAP PO PRN (13:46)
[2021-07-18] MEDS: HYDROcodone/APAP 5-325MG 1 EACH TAB PO PRN ×2 (15:57→22:17)
--- NOTE | 2021-07-18 18:27 | P.PN ---
Subjective Progress Note Date: 07/18/21 (delayed charting seen at 1015) Principal diagnosis: right hand swelling Patient is a 41-year-old female with no known past medical history who presented for planned right fourth digit incision and drainage for deep infection. Patient seen and examined at bedside. She is very upset about being in the hospital. She states her pain is well-controlled that she is having some itching. She denies nausea, vomiting, diarrhea. General: non toxic, no distress, appears at stated age Derm: warm, dry Head: atraumatic, normocephalic, symmetric Eyes: EOMI, no lid lag, anicteric sclera Mouth: no lip lesion, mucus membranes moist Cardiovascular: S1S2 reg, no murmur, positive posterior tibial pulse bilateral, Lungs: CTA bilateral, no rhonchi, no rales , no accessory muscle use Abdominal: soft, nontender to palpation, no guarding, no appreciable organomegaly Ext: no gross muscle atrophy, no edema, no contractures Right fourth and fifth digits with Drew wrap in place Neuro: CN II-XI grossly intact, no focal neuro deficits Psych: Alert, oriented, appropriate affect Assessment/plan Right fourth digit deep tissue infection status post I and D -Continue with cefepime and Vanco -ID recs -Await cultures -Follow CBC -Pain control -IV fluids Tobacco abuse -Cessation -Nicotine replacement Thank you for allowing us to participate in the care of this pleasant patient. Do not hesitate to contact us with questions. Someone can be reached from the [facility] hospitalist group all hours of the day at [phone] or via perfect serve. Objective - Vital Signs Vital signs: Vital Signs Temp 98.1 F 07/18/21 15:05 Pulse 70 07/18/21 15:05 Resp 18 07/18/21 15:05 BP 134/81 07/18/21 15:05 Pulse Ox 99 07/18/21 15:05 Intake & Output 07/17/21 07/18/21 07/18/21 18:59 06:59 18:59 Intake Total 1151 Output Total 5 Balance 1146 Weight 97.5 kg Intake: IV 851 Intake, IV Titration 200 Amount Lactated Ringers 1,000 ml 200 @ 100 mls/hr IV .Q10H [facility] Rx#:[id number] Oral 100 Output: Estimated Blood Loss 5 Other: # Voids 3 3 - Labs CBC & Chem 7: 07/18/21 04:05 07/18/21 04:05 Labs: Abnormal Lab Results - Last 24 Hours (Table) 07/18/21 07/18/21 Range/Units 04:05 04:05 WBC 13.09 H (4.50-10.00) X 10*3/uL RBC 3.71 L (4.10-5.20) X 10*6/uL MCV 101.9 H (80.0-97.0) fL MCH 33.2 H (27.0-32.0) pg Neutrophils # 10.52 H (1.80-7.70) X 10*3/uL Eosinophils # 0 L (0.04-0.35) X 10*3/uL ESR 54 H (0-20) mm/Hr BUN/Creatinine Ratio 11.38 L (12.00-20.00) Ratio Total Bilirubin <0.15 L (0.30-1.20) mg/dL Total Protein 6.0 L (6.2-8.2) g/dL Albumin 3.7 L (3.8-4.9) g/dL Microbiology - Last 24 Hours (Table) 07/17/21 15:50 Gram Stain - Preliminary Finger - Right Fourth Wound Culture - Preliminary 07/17/21 15:50 Fungal Culture - Preliminary Finger - Right Fourth 07/17/21 15:50 Anaerobic Culture - Preliminary Finger - Right Fourth
[2021-07-18] MEDS ORDERED: GENTAMICIN 520 MG in SODIUM CHLORIDE 0.9% 100 ML IVPB SCH (20:00)
--- NOTE | 2021-07-18 23:14 | P.CONS ---
History of Present Illness - Reason for Consult Consult date: 07/18/21 Deep finger infection Requesting physician: Chivo Henderson - Chief Complaint Right fourth finger pain swelling and drainage x 1 week - History of Present Illness Patient is a 41-year-old female who apparently he recently did have a fall while intoxicated with resulting injury to the right fourth digit for the patient has been previously evaluated at [facility] and the patient was started on oral Keflex patient mention that her bone was sticking out and subs equent did follow with Dr. Henderson who did start the patient on oral Augmentin in addition to the oral Keflex given by [facility] patient mention she started having more problem with the purulent drainage from the right fourth finger and did have more swelling and redness along with it patient also complaining of pain describing it to be throbbing intensity is almost 10 out of 10 with no radiation patient was reevaluated by orthopedics and subsequently was taken to the OR yesterday afternoon with concern for the right ring finger open PIP joint dislocation with deep infection patient is status post sharp excisional debridement and packing of the resultant wound with iodoform gauze cu lture were obtained patient was started on vancomycin and gentamicin infectious disease was consulted for further management of antibiotic therapy Review of Systems Positive point has been mentioned in the HPI rest of the systems are negative Past Medical History Past Medical History: Musculoskeletal Disorder, Osteoarthritis (OA) Additional Past Medical History / Comment(s): fell & injured right ring finger on 07-05-21-wearing splint & dressing, entire hand very swollen History of Any Multi-Drug Resistant Organisms: None Reported Past Surgical History: Tubal Ligation Additional Past Surgical History / Comment(s): vocal cord/polyps removed, ectopic surg., right wrist proximal row carpectomy Past Anesthesia/Blood Transfusion Reactions: No Reported Reaction Past Psychological History: Anxiety, Depression Smoking Status: Current every day smoker Past Alcohol Use History: Occasional Additional Past Alcohol Use History / Comment(s): 1/2-1ppd, has smoked for approx. 22 yrs. Past Drug Use History: Marijuana Additional Drug Use History / Comment(s): occasional use - Past Family History Mother Family Medical History: Dementia, Thyroid Disorder Father Family Medical History: Coronary Artery Disease (CAD), Diabetes Mellitus Medications and Allergies Home Medications Medication Instructions Recorded Confirmed Type Acetaminophen [Tylenol Arthritis] 650 mg PO Q6H PRN 07/16/21 07/16/21 History Amoxic-Pot Clav 875-125Mg 1 tab PO BID 07/16/21 07/16/21 History [Augmentin 875-125] Cephalexin [Keflex] 500 mg PO Q12HR 07/16/21 07/16/21 History HYDROcodone/APAP 5-325MG [[place] 1 - 2 tab PO Q6HR PRN 07/16/21 07/17/21 History 5-325] Allergies Allergy/AdvReac Type Severity Reaction Status Date / Time grass pollen Allergy Itching Verified 07/16/21 12:38 Physical Exam Vitals: Vital Signs Temp Pulse Pulse Pulse Resp BP Pulse Ox 07/18/21 08:00 98.1 F 91 18 128/70 97 07/18/21 02:15 98.4 F 68 18 120/73 97 07/17/21 19:03 74 116/78 90 L 07/17/21 18:48 74 101/65 95 07/17/21 18:33 64 105/70 93 L 07/17/21 18:18 63 111/74 95 07/17/21 18:10 97.7 F 69 103/65 95 07/17/21 17:30 68 18 117/63 92 L 07/17/21 17:16 73 18 112/57 93 L 07/17/21 17:00 75 18 116/58 94 L 07/17/21 16:45 64 18 121/59 99 07/17/21 16:30 65 18 155/72 98 07/17/21 16:15 76 18 167/102 100 07/17/21 15:56 97.9 F 90 20 158/104 100 07/17/21 13:42 98.0 F 72 16 121/68 97 Intake and Output 07/17/21 07/18/21 07/18/21 22:59 06:59 14:59 Intake Total 551 Output Total 5 Balance 546 Intake: IV 251 Intake, IV Titration 200 Amount Lactated Ringers 1,000 ml 200 @ 100 mls/hr IV .Q10H [facility] Rx#:[id number] Oral 100 Output: Estimated Blood Loss 5 Other: # Voids 3 Weight 97.5 kg GENERAL DESCRIPTION: Middle-aged female lying in bed, no distress. No tachypnea or accessory muscle of respiration use. HEENT: Shows Pallor , no scleral icterus. Oral mucous membrane is dry. No pharyngeal erythema or thrush NECK: Trachea central, no thyromegaly. LUNGS: Unlabored breathing. Clear to auscultation anteriorly. No wheeze or crackle. HEART: S1, S2, regular rate and rhythm. No loud murmur ABDOMEN: Soft, no tenderness , guarding or rigidity, no organomegaly EXTREMITIES: Right fourth finger is currently dressed in OR dressing no drainage on the dressing SKIN: No rash, no masses palpable. NEUROLOGICAL: The patient is awake, alert, oriented x3, mood and affect normal. Results CBC & Chem 7: 07/18/21 04:05 07/18/21 04:05 Labs: Abnormal Lab Results - Last 24 Hours (Table) 07/18/21 07/18/21 Range/Units 04:05 04:05 WBC 13.09 H (4.50-10.00) X 10*3/uL RBC 3.71 L (4.10-5.20) X 10*6/uL MCV 101.9 H (80.0-97.0) fL MCH 33.2 H (27.0-32.0) pg Neutrophils # 10.52 H (1.80-7.70) X 10*3/uL Eosinophils # 0 L (0.04-0.35) X 10*3/uL BUN/Creatinine Ratio 11.38 L (12.00-20.00) Ratio Total Bilirubin <0.15 L (0.30-1.20) mg/dL Total Protein 6.0 L (6.2-8.2) g/dL Albumin 3.7 L (3.8-4.9) g/dL Microbiology - Last 24 Hours (Table) 07/17/21 15:50 Gram Stain - Preliminary Finger - Right Fourth Wound Culture - Preliminary 07/17/21 15:50 Fungal Culture - Preliminary Finger - Right Fourth 07/17/21 15:50 Anaerobic Culture - Preliminary Finger - Right Fourth Assessment and Plan (1) Abscess of finger Current Visit: Yes Status: Acute Code(s): L02.519 - CUTANEOUS ABSCESS OF UNSPECIFIED HAND SNOMED Code(s): 57099186 Plan: 1patient presented to the hospital with open PIP joint fourth finger right and with secondary deep infection failing outpatient oral Augmentin and Keflex therapy s/p debridement and deep cultures which are currently pending we will need to cover for the resistant gram-positive as well as gram-negative pathogen. 2vancomycin pharmacy to dose target trough of 15 while watching kidney function and vancomycin trough closely, gentamicin was discontinued last night and cefepime was added for gram-negative coverage. 3patient will likely need PICC line for outpatient IV antibiotic therapy in view of deep infection involving the joint. We will follow on clinical condition and cultures to further adjust medication if needed Thank you for this consultation will follow this patient along with you
[2021-07-19] MEDS: HYDROmorphone 1 MG/ML 1 ML SYRINGE IVP PRN ×7 (02:38→22:56)
[2021-07-19] MEDS: HYDROcodone/APAP 5-325MG 1 EACH TAB PO PRN (04:45)
[2021-07-19] MEDS: diphenhydrAMINE 25 MG CAP PO PRN (04:46)
[2021-07-19 06:59] LABS: HGB 12.3 gm/dL (11.4-16.0); MCH 33.5 pg (25.0-35.0); MCHC 31.6 g/dL (31.0-37.0); MCV 106.1 fL (80.0-100.0); Macrocytosis Moderate; Mean Platelet Volume 7.5; Platelet Count 335 k/uL (150-450); RBC 3.68 m/uL (3.80-5.40); RDW 14.2 % (11.5-15.5); WBC 8.2 k/uL (3.8-10.6)
[2021-07-19 07:09] LABS: African American GFR (CKD) >90 (>60 ml/min/1.73 sqM); Anion Gap 5 mmol/L; Blood Urea Nitrogen 14 mg/dL (7-17); Calcium 8.2 mg/dL (8.4-10.2); Carbon Dioxide 25 mmol/L (22-30); Chloride 106 mmol/L (98-107); Glucose 93 mg/dL (74-99); Non-African American GFR(CKD) 89 (>60 ml/min/1.73 sqM); Potassium 4.3 mmol/L (3.5-5.1); Sodium 136 mmol/L (137-145)
[2021-07-19] MEDS: VANCOMYCIN 1,500 MG in SODIUM CHLORIDE 0.9% 250 ML IVPB SCH ×2 (07:58→20:10)
[2021-07-19] MEDS: LACTATED RINGERS 1,000 ML IV SCH ×2 (07:59→16:36)
[2021-07-19] MEDS: FLUCONAZOLE 150 MG TAB PO SCH (07:59)
[2021-07-19] MEDS: CEFEPIME 2 GM in SODIUM CHLORIDE 0.9% 100 ML IVPB SCH ×3 (07:59→23:01)
--- NOTE | 2021-07-19 12:04 | P.PN ---
Subjective Progress Note Date: 07/19/21 Principal diagnosis: Right ring finger open wound infection Patient is seen at bedside this morning. She is postop day #2 from Right ring finger open wound incision and drainage with sharp excisional debridement of skin, subcutaneous, fascia, tendon. She has pain at the surgical site as expected but denies any new complaints. She denies numbness, tingling, negative for fever, chills, chest pain, shortness of breath or other Objective - Vital Signs Vital signs: Vital Signs Temp 98.0 F 07/19/21 08:00 Pulse 58 L 07/19/21 08:00 Resp 17 07/19/21 08:00 BP 115/73 07/19/21 08:00 Pulse Ox 96 07/19/21 08:00 Intake & Output 07/18/21 07/19/21 07/19/21 18:59 06:59 18:59 Other: Voiding Method Toilet # Voids 3 4 - Exam Inspection reveals a benign appear bandage with no evidence of active bleeding or drainage. the bandage was taken down and packing removed. There was no excessive purulence or bleeding. Sutures intact. No progressive erythema. Neurovascular status is intact throughout the upper extremity with motor and sensation fully intact. Digits are warm and have brisk capillary refill. - Constitutional General appearance: Present: no acute distress - Labs CBC & Chem 7: 07/19/21 06:16 07/19/21 06:16 Labs: Abnormal Lab Results - Last 24 Hours (Table) 07/19/21 07/19/21 Range/Units 06:16 06:16 RBC 3.68 L (3.80-5.40) m/uL MCV 106.1 H (80.0-100.0) fL Sodium 136 L (137-145) mmol/L Calcium 8.2 L (8.4-10.2) mg/dL Microbiology - Last 24 Hours (Table) 07/18/21 04:05 Blood Culture - Preliminary Blood No Growth after 24 hours 07/17/21 15:50 Gram Stain - Preliminary Finger - Right Fourth Wound Culture - Preliminary Assessment and Plan (1) Open dislocation of right ring finger Narrative/Plan: She will continue with routine postop orthopedic protocol including pain management, wound care/daily dressing changes/packing, IV antibiotics, DVT prophylaxis and medical management. ID also consulted. Will continue to monitor and make further recommendations as appropriate Current Visit: Yes Status: Acute Priority: Medium Code(s): S63.254A - UNSPECIFIED DISLOCATION OF RIGHT RING FINGER, INIT ENCNTR; S61.204A - UNSP OPEN WOUND OF R RNG FNGR W/O DAMAGE TO NAIL, INIT SNOMED Code(s): 81605574 Time with Patient: Less than 30
[2021-07-19] MEDS ORDERED: HYDROcodone/APAP 10-325MG 1 EACH TAB PO PRN ×2 (12:11)
--- NOTE | 2021-07-19 14:35 | P.PN ---
Subjective Patient was examined at bedside today continues to complain of intractable pain in her digits. States that Alpha was not helping and is making her nauseous. Case discussed with RN present at bedside adjustments have been made. Family present at bedside all questions have been answered. Objective - Vital Signs Vital signs: Vital Signs Temp 98.0 F 07/19/21 08:00 Pulse 58 L 07/19/21 08:00 Resp 17 07/19/21 08:00 BP 115/73 07/19/21 08:00 Pulse Ox 96 07/19/21 08:00 Intake & Output 07/18/21 07/19/21 07/19/21 18:59 06:59 18:59 Other: Voiding Method Toilet # Voids 3 4 - Exam General: non toxic, slight distress secondary to pain. Derm: warm, dry Head: atraumatic, normocephalic, symmetric Eyes: EOMI, no lid lag, anicteric sclera Mouth: no lip lesion, mucus membranes moist Cardiovascular: S1S2 reg, no murmur, positive posterior tibial pulse bilateral, Lungs: CTA bilateral, no rhonchi, no rales , no accessory muscle use Abdominal: soft, nontender to palpation, no guarding, no appreciable organomegaly Ext: no gross muscle atrophy, no edema, no contractures Right fourth and fifth digits with Drew wrap in place Psych: Alert, oriented, appropriate affect - Labs CBC & Chem 7: 07/19/21 06:16 07/19/21 06:16 Labs: Abnormal Lab Results - Last 24 Hours (Table) 07/19/21 07/19/21 Range/Units 06:16 06:16 RBC 3.68 L (3.80-5.40) m/uL MCV 106.1 H (80.0-100.0) fL Sodium 136 L (137-145) mmol/L Calcium 8.2 L (8.4-10.2) mg/dL Microbiology - Last 24 Hours (Table) 07/18/21 04:05 Blood Culture - Preliminary Blood No Growth after 24 hours Assessment and Plan Assessment: Assessment/plan Right fourth digit deep tissue infection status post I and D -Continue with cefepime and Vanco -Continue to follow microbiology, blood culture preliminary no growth, fungal culture, Gram stain -Pain control. We'll discontinue Alpha and start the patient on IV Toradol 15 mg every 6 hours. Continue Dilaudid. -Continue to follow recommendations as per infectious disease team. Tobacco abuse -Cessation -Nicotine replacement DVT prophylaxis as per primary
[2021-07-19] MEDS: KETOROLAC 15 MG/ML 1 ML VIAL IVP PRN (17:49)
--- NOTE | 2021-07-19 22:54 | P.PN ---
Subjective Progress Note Date: 07/19/21 Principal diagnosis: Right fourth finger infection Patient is a 41-year-old female with recent history of trauma to the right fourth finger and concerning for allowing infection status post debridement and deep cultures which are currently pending. On today's evaluation that is 07/19/2021, the patient denies having any fever or chills, the patient pain to the right and is currently controlled, the patient denies having any chest pain or shortness of breath or cough no abdominal pain no diarrhea Objective - Vital Signs Vital signs: Vital Signs Temp 98.5 F 07/19/21 14:00 Pulse 64 07/19/21 14:00 Resp 18 07/19/21 14:00 BP 110/68 07/19/21 14:00 Pulse Ox 100 07/19/21 14:00 Intake & Output 07/18/21 07/19/21 07/19/21 18:59 06:59 18:59 Other: Voiding Method Toilet # Voids 3 4 - Exam GENERAL DESCRIPTION: A middle-age female lying in bed in no distress RESPIRATORY SYSTEM: Unlabored breathing , decreased breath sounds at bases HEART: S1 S2 regular rate and rhythm , ABDOMEN: Soft , no tenderness EXTREMITIES: Right hand is currently dressed no drainage on the dressing - Labs CBC & Chem 7: 07/19/21 06:16 07/19/21 06:16 Labs: Abnormal Lab Results - Last 24 Hours (Table) 07/19/21 07/19/21 Range/Units 06:16 06:16 RBC 3.68 L (3.80-5.40) m/uL MCV 106.1 H (80.0-100.0) fL Sodium 136 L (137-145) mmol/L Calcium 8.2 L (8.4-10.2) mg/dL Microbiology - Last 24 Hours (Table) 07/18/21 04:05 Blood Culture - Preliminary Blood No Growth after 24 hours Assessment and Plan (1) Abscess of finger Current Visit: Yes Status: Acute Code(s): L02.519 - CUTANEOUS ABSCESS OF UNSPECIFIED HAND SNOMED Code(s): 54299003 Plan: 1patient presented to the hospital with open PIP joint fourth finger right and with secondary deep infection failing outpatient oral Augmentin and Keflex therapy s/p debridement and deep cultures which are currently pending 2vancomycin pharmacy to dose target trough of 15 while watching kidney func tion and vancomycin trough closely and cefepime will provide adequate empiric antibiotic coverage 3patient will likely need PICC line for outpatient IV antibiotic therapy in view of deep infection involving the joint. Time with Patient: Less than 30
[2021-07-20] MEDS: KETOROLAC 15 MG/ML 1 ML VIAL IVP PRN ×3 (01:25→21:01)
[2021-07-20] MEDS: HYDROmorphone 1 MG/ML 1 ML SYRINGE IVP PRN ×7 (02:31→22:49)
[2021-07-20] MEDS: LACTATED RINGERS 1,000 ML IV SCH ×3 (05:52→21:02)
[2021-07-20] MEDS: diphenhydrAMINE 25 MG CAP PO PRN (05:53)
[2021-07-20] MEDS ORDERED: VANCOMYCIN TROUGH DUE 1 EACH MISC MISCELLANE ONE (07:00)
[2021-07-20] MEDS: FLUCONAZOLE 150 MG TAB PO SCH (08:32)
[2021-07-20] MEDS: CEFEPIME 2 GM in SODIUM CHLORIDE 0.9% 100 ML IVPB SCH ×2 (08:32→16:08)
[2021-07-20] MEDS ORDERED: VANCOMYCIN 1,750 MG in SODIUM CHLORIDE 0.9% 500 ML 500 ML IVPB SCH (09:45)
--- NOTE | 2021-07-20 10:42 | P.PN ---
Subjective Progress Note Date: 07/20/21 Patient says her pain is controlled with pain medication. She denies any further fevers, chills. No other issues at this point. Wound culture from the operating room show Haemophilus species growing, can likely discontinue vancomycin. Gen: awake, alert HEENT: normocephalic, atraumatic, good hearing acuity, moist mucous membranes Resp: good air exchange, breathing comfortably with no accessory muscle use CVS: good distal perfusion x 4, GI: soft, NTTP, ND : no SPT, no CVAT, mott catheter not present MSK: no pitting edema, no clubbing Neuro: non-focal, moving all extremities Psych: cooperative, euthymic mood Assessment/plan: Right fourth digit deep tissue infection status post I and D -Continue with cefepime and Vanco -Continue to follow microbiology, blood culture preliminary no growth, fungal culture, Gram stain -Wound culture from OR growing haemophilus -Pain control. We'll discontinue [place] and start the patient on IV Toradol 15 m g every 6 hours. Continue Dilaudid. -Continue to follow recommendations as per infectious disease team. Tobacco abuse -Cessation -Nicotine replacement Patient is a full code We'll start DVT prophylaxis with enoxaparin Objective - Vital Signs Vital signs: Vital Signs Temp 98.9 F 07/20/21 07:46 Pulse 67 07/20/21 07:46 Resp 17 07/20/21 07:46 BP 121/78 07/20/21 07:46 Pulse Ox 98 07/20/21 07:46 Intake & Output 07/19/21 07/20/21 07/20/21 18:59 06:59 18:59 Other: Voiding Method Toilet Toilet # Voids 3 3 - Labs CBC & Chem 7: 07/19/21 06:16 07/19/21 06:16 Labs: Microbiology - Last 24 Hours (Table) 07/18/21 04:05 Blood Culture - Preliminary Blood No Growth after 48 hours 07/17/21 15:50 Gram Stain - Final Finger - Right Fourth Wound Culture - Final Haemophilus species
--- NOTE | 2021-07-20 11:13 | P.PN ---
Subjective Progress Note Date: 07/20/21 Principal diagnosis: Right ring finger infection. Septic arthritis right ring finger. This is a 41-year-old female who is postop day #3 status post incision and drainage and irrigation with antibiotic solution of the right ring finger. She has history of open dislocation with delayed treatment. The patient is doing well. Her dressing and packing were changed yesterday. She complains of significant pain. She has been afebrile with T-max 99.6. Objective - Vital Signs Vital signs: Vital Signs Temp 98.9 F 07/20/21 07:46 Pulse 67 07/20/21 07:46 Resp 17 07/20/21 07:46 BP 121/78 07/20/21 07:46 Pulse Ox 98 07/20/21 07:46 Intake & Output 07/19/21 07/20/21 07/20/21 18:59 06:59 18:59 Other: Voiding Method Toilet Toilet # Voids 3 3 - Exam This is a pleasant 41-year-old female in no acute distress. She is alert and oriented 3. Exam of the right upper extremity reveals that her dressing is intact. She is able to wiggle the remaining fingers. The ring finger is immobilized. Capillary refill is less than 3 seconds. - Labs CBC & Chem 7: 07/19/21 06:16 07/19/21 06:16 Labs: Microbiology - Last 24 Hours (Table) 07/18/21 04:05 Blood Culture - Preliminary Blood No Growth after 48 hours 07/17/21 15:50 Gram Stain - Final Finger - Right Fourth Wound Culture - Final Haemophilus species Assessment and Plan (1) Septic arthritis of interphalangeal joint of finger of right hand Current Visit: Yes Status: Acute Code(s): M00.9 - PYOGENIC ARTHRITIS, UNSPECIFIED SNOMED Code(s): 677015342 (2) Abscess of finger Current Visit: Yes Status: Acute Code(s): L02.519 - CUTANEOUS ABSCESS OF UNSPECIFIED HAND SNOMED Code(s): 20795974 (3) Open dislocation of right ring finger Current Visit: Yes Status: Acute Priority: Medium Code(s): S63.254A - UNSPECIFIED DISLOCATION OF RIGHT RING FINGER, INIT ENCNTR; S61.204A - UNSP OPEN WOUND OF R RNG FNGR W/O DAMAGE TO NAIL, INIT SNOMED Code(s): 03468623 Plan: The clinical findings are discussed the patient. We are awaiting final cultures. The patient is being followed by infectious disease. I anticipate the need for a PICC line. Discharge antibiotics and wound care per infectious disease.
[2021-07-20] MEDS: ENOXAPARIN 40 MG/0.4 ML SYRINGE SQ SCH (11:32)
[2021-07-20 15:26] LABS: African American GFR (CKD) >90 (>60 ml/min/1.73 sqM); Non-African American GFR(CKD) >90 (>60 ml/min/1.73 sqM)
--- NOTE | 2021-07-20 22:31 | P.PN ---
Subjective Progress Note Date: 07/20/21 Principal diagnosis: Right fourth finger infection Patient is a 41-year-old female with recent history of trauma to the right fourth finger and concerning for allowing infection status post debridement and deep cultures which are currently pending. On today's evaluation that is 07/20/2021, the patient remains to be afebrile, the patient pain to the right fourth finger is currently controlled, the patient denies having any chest pain or shortness of breath or cough no abdominal pain no diarrhea with antibiotic therapy Objective - Vital Signs Vital signs: Vital Signs Temp 98.9 F 07/20/21 07:46 Pulse 67 07/20/21 07:46 Resp 17 07/20/21 07:46 BP 121/78 07/20/21 07:46 Pulse Ox 98 07/20/21 07:46 Intake & Output 07/19/21 07/20/21 07/20/21 18:59 06:59 18:59 Other: Voiding Method Toilet Toilet # Voids 3 3 - Exam GENERAL DESCRIPTION: A middle-age female lying in bed in no distress RESPIRATORY SYSTEM: Unlabored breathing , decreased breath sounds at bases HEART: S1 S2 regular rate and rhythm , ABDOMEN: Soft , no tenderness EXTREMITIES: Right hand is currently dressed no drainage on the dressing - Labs CBC & Chem 7: 07/19/21 06:16 07/20/21 06:58 Labs: Microbiology - Last 24 Hours (Table) 07/18/21 04:05 Blood Culture - Preliminary Blood No Growth after 48 hours 07/17/21 15:50 Gram Stain - Final Finger - Right Fourth Wound Culture - Final Haemophilus species Assessment and Plan (1) Abscess of finger Current Visit: Yes Status: Acute Code(s): L02.519 - CUTANEOUS ABSCESS OF UNSPECIFIED HAND SNOMED Code(s): 36059978 Plan: 1patient presented to the hospital with open PIP joint fourth finger right and with secondary deep infection failing outpatient oral Augmentin and Keflex therapy s/p debridement and deep cultures which are currently pending 2blood culture has been negative local culture showing Haemophilus species with sensitivities pending 3-we will continue with the cefepime however discontinue vancomycin as no gram- positive has been seen Discharge antibiotics on the basis of final culture Time with Patient: Less than 30
[2021-07-21] MEDS: CEFEPIME 2 GM in SODIUM CHLORIDE 0.9% 100 ML IVPB SCH ×5 (00:05→23:17)
[2021-07-21] MEDS: HYDROmorphone 1 MG/ML 1 ML SYRINGE IVP PRN ×2 (01:57→05:20)
[2021-07-21] MEDS: ENOXAPARIN 40 MG/0.4 ML SYRINGE SQ SCH (08:10)
[2021-07-21] MEDS: KETOROLAC 15 MG/ML 1 ML VIAL IVP PRN (08:10)
[2021-07-21] MEDS ORDERED: HYDROcodone/APAP 7.5-325MG 1 EACH TAB PO PRN (08:42)
--- NOTE | 2021-07-21 08:47 | P.PN ---
Subjective Progress Note Date: 07/21/21 This is a 41-year-old female with status post incision and drainage and irrigation with antibiotic solution of the right ring finger. This is postoperative day #4 and patient is seen and evaluated at bedside today. Patient states that she does have some soreness, but she denies any new complaints today. Objective - Vital Signs Vital signs: Vital Signs Temp 98.3 F 07/21/21 02:00 Pulse 69 07/21/21 02:00 Resp 15 07/21/21 02:00 BP 144/75 07/21/21 02:00 Pulse Ox 99 07/21/21 02:00 Intake & Output 07/20/21 07/21/21 07/21/21 18:59 06:59 18:59 Intake Total 1400 Output Total 4 Balance 1396 Intake: Intake, IV Titration 1300 Amount Cefepime 2 gm In Sodium 100 Chloride 0.9% 100 ml @ 25 mls/hr IVPB Q8HR [facility] Rx# :[id number] Lactated Ringers 1,000 ml 1200 @ 100 mls/hr IV .Q10H [facility] Rx#:[id number] Oral 100 Output: Urine 4 Other: Voiding Method Toilet Toilet # Voids 2 - Exam On exam there is a clean and dry dressing in place over the right hand. Sensation intact. Neurovascular status and circulatory status are intact. - Labs CBC & Chem 7: 07/19/21 06:16 07/20/21 06:58 Labs: Microbiology - Last 24 Hours (Table) 07/18/21 04:05 Blood Culture - Preliminary Blood No Growth after 72 hours 07/17/21 15:50 Anaerobic Culture - Final Finger - Right Fourth Anaerobic Gm Negative Bacilli Anaerobic Gm Negative Bacilli#2 Assessment and Plan Assessment: Right ring finger infection. Septic arthritis right ring finger. (1) Abscess of finger Current Visit: Yes Status: Acute Code(s): L02.519 - CUTANEOUS ABSCESS OF UNSPECIFIED HAND SNOMED Code(s): 53007679 (2) Open dislocation of right ring finger Current Visit: Yes Status: Acute Priority: Medium Code(s): S63.254A - UNSPECIFIED DISLOCATION OF RIGHT RING FINGER, INIT ENCNTR; S61.204A - UNSP OPEN WOUND OF R RNG FNGR W/O DAMAGE TO NAIL, INIT SNOMED Code(s): 76297219 (3) Septic arthritis of interphalangeal joint of finger of right hand Current Visit: Yes Status: Acute Code(s): M00.9 - PYOGENIC ARTHRITIS, UNSPE CIFIED SNOMED Code(s): 000882772 Plan: Continue wound care and antibiotics per infectious disease. Final cultures are showing Haemophilus species. Patient is awaiting PICC line placement. Anticipate discharge later today or tomorrow once discharge antibiotics are determined.
[2021-07-21] MEDS: LACTATED RINGERS 1,000 ML IV SCH ×2 (09:48→21:31)
--- NOTE | 2021-07-21 09:48 | P.PN ---
Subjective Progress Note Date: 07/21/21 Patient says her pain is controlled with pain medication. She denies any further fevers, chills. No other issues at this point. Wound culture from the operating room show Haemophilus species growing, as well as one additional anaerobic GN bacteria. Gen: awake, alert HEENT: normocephalic, atraumatic, good hearing acuity, moist mucous membranes Resp: good air exchange, breathing comfortably with no accessory muscle use CVS: good distal perfusion x 4, GI: soft, NTTP, ND : no SPT, no CVAT, mott catheter not present MSK: no pitting edema, no clubbing Neuro: non-focal, moving all extremities Psych: cooperative, euthymic mood Assessment/plan: Right fourth digit deep tissue infection status post I and D -Continue with cefepime -Continue to follow microbiology, blood culture preliminary no growth, fungal culture, Gram stain -Wound culture from OR growing haemophilus, and one other GN bacteria -Pain control. We'll discontinue [place] and start the patient on IV Toradol 15 mg every 6 hours. Continue Dilaudid. -Continue to follow recommendations as per infectious disease team. Tobacco abuse -Cessation -Nicotine replacement if requested Patient is a full code We'll start DVT prophylaxis with enoxaparin Objective - Vital Signs Vital signs: Vital Signs Temp 98.3 F 07/21/21 02:00 Pulse 69 07/21/21 02:00 Resp 15 07/21/21 02:00 BP 144/75 07/21/21 02:00 Pulse Ox 99 07/21/21 02:00 Intake & Output 07/20/21 07/21/21 07/21/21 18:59 06:59 18:59 Intake Total 1400 Output Total 4 Balance 1396 Intake: Intake, IV Titration 1300 Amount Cefepime 2 gm In Sodium 100 Chloride 0.9% 100 ml @ 25 mls/hr IVPB Q8HR [facility] Rx# :[id number] Lactated Ringers 1,000 ml 1200 @ 100 mls/hr IV .Q10H [facility] Rx#:[id number] Oral 100 Output: Urine 4 Other: Voiding Method Toilet Toilet # Voids 2 - Labs CBC & Chem 7: 07/19/21 06:16 07/20/21 06:58 Labs: Microbiology - Last 24 Hours (Table) 07/18/21 04:05 Blood Culture - Preliminary Blood No Growth after 72 hours 07/17/21 15:50 Anaerobic Culture - Final Finger - Right Fourth Anaerobic Gm Negative Bacilli Anaerobic Gm Negative Bacilli#2
[2021-07-21] MEDS: HYDROcodone/APAP 7.5-325MG 1 EACH TAB PO PRN ×2 (10:03→18:39)
[2021-07-21] MEDS: SENNOSIDES-DOCUSATE SODIUM 1 EACH TAB PO SCH ×2 (10:04→21:15)
[2021-07-21 10:12] LABS: Basophils # (A) 0.04 X 10*3/uL (0.00-0.10); Basophils % (A) 0.5 %; Eosinophils # (A) 0.07 X 10*3/uL (0.04-0.35); HCT 35.5 % (37.2-46.3); HGB 11.5 g/dL (12.0-15.0); Immature Grans, Automated 0.4 %; Lymphocytes # (A) 2.14 X 10*3/uL (0.90-5.00); Lymphocytes % (A) 29.1 %; MCHC 32.4 g/dL (32.0-37.0); Mean Platelet Volume 9.8 fL (9.5-12.2); Monocytes # (A) 0.69 X 10*3/uL (0.20-1.00); Monocytes % (A) 9.4 %; NRBC Per 100 WBC 0 /100 WBCS (0.0-0.0); Neutrophils # (A) 4.39 X 10*3/uL (1.80-7.70); Neutrophils % (A) 59.6 %; Platelet Count 302 X 10*3/uL (140-440); RBC 3.48 X 10*6/uL (4.10-5.20); WBC 7.36 X 10*3/uL (4.50-10.00)
[2021-07-21 10:32] LABS: African American GFR (CKD) 106.9 (60.0-200.0); Anion Gap 10.6 mmol/L (10.00-18.00); Calcium 8.7 mg/dL (8.7-10.3); Carbon Dioxide 24.4 mmol/L (20.0-27.5); Magnesium 2.1 mg/dL (1.5-2.4); Non-African American GFR(CKD) 92.2 (60.0-200.0); Potassium 4.4 mmol/L (3.5-5.5)
[2021-07-21] MEDS: metroNIDAZOLE 500 MG TAB PO SCH ×3 (13:19→21:15)
[2021-07-21] MEDS ORDERED: LIDOCAINE 1% INJ 10MG/ML (20 ML MDV) SQ ONE (14:16)
[2021-07-21] MEDS: HYDROmorphone 0.5 MG/0.5 ML SYRINGE IVP PRN ×2 (15:18→23:17)
--- NOTE | 2021-07-21 16:01 | IR ---
EXAMINATION TYPE: IR cvc insert >=5 years DATE OF EXAM: 07/21/2021 COMPARISON: NONE CLINICAL HISTORY: Infection Needs long-term intravenous access for antibiotics. PROCEDURE: Hand hygiene obtained with soap and water and alcohol-based hand rub. After informed consent, the skin overlying the left basilic vein was localized with ultrasound and no sunday to be compressible and patent. An ultrasound image was obtained and submitted on the patient's c edwards. The overlying skin was prepped and draped and Lidocaine was used for local anesthesia. A skin melita was made with a scalpel. Access was gained to the vein under ultrasound guidance with a 21 gau ge needle and a 0.018 inch wire was advanced. Access site was dilated with Peel-Away sheath and cath eter tailored to the appropriate length and advanced such that the distal tip is at the cavoatrial ju nction. Spot image was obtained verifying placement. Catheter was fixed to the skin and a sterile d ressing was placed following hemostasis. Catheter was aspirated and flushed with saline. Patient wa s discharged in stable condition without complication. Maximal barrier technique is utilized. Ultras ound image is documented on the chart. Ultrasound used with sterile technique. Fluoro time and fluoroscopic images submitted to document procedure: 90 intraoperative C-arm images, 0.2 minutes fluoroscopy time IMPRESSION: STATUS POST ULTRASOUND AND FLUOROSCOPIC GUIDED PICC LINE PLACEMENT, READY FOR USE. THIS PROCEDURE WAS PERFORMED BY THE UNDERSIGNED.
[2021-07-21] MEDS: GABAPENTIN 300 MG CAP PO PRN (21:15)
--- NOTE | 2021-07-21 23:34 | P.PN ---
Subjective Progress Note Date: 07/21/21 Principal diagnosis: Right fourth finger infection Patient is a 41-year-old female with recent history of trauma to the right fourth finger and concerning for allowing infection status post debridement and deep cultures which are currently pending. On today's evaluation that is 07/21/2021, the patient denies any fever or any chills, the patient pain to the right fourth finger is currently controlled, the patient denies having any chest pain or shortness of breath or cough no abdominal pain no diarrhea with antibiotic therapy Objective - Vital Signs Vital signs: Vital Signs Temp 98.6 F 07/21/21 07:49 Pulse 69 07/21/21 07:49 Resp 18 07/21/21 07:49 BP 121/80 07/21/21 07:49 Pulse Ox 97 07/21/21 07:49 Intake & Output 07/20/21 07/21/21 07/21/21 18:59 06:59 18:59 Intake Total 1400 Output Total 4 Balance 1396 Intake: Intake, IV Titration 1300 Amount Cefepime 2 gm In Sodium 100 Chloride 0.9% 100 ml @ 25 mls/hr IVPB Q8HR [facility] Rx# :[id number] Lactated Ringers 1,000 ml 1200 @ 100 mls/hr IV .Q10H [facility] Rx#:[id number] Oral 100 Output: Urine 4 Other: Voiding Method Toilet Toilet # Voids 2 - Exam GENERAL DESCRIPTION: A middle-age female lying in bed in no distress RESPIRATORY SYSTEM: Unlabored breathing , decreased breath sounds at bases HEART: S1 S2 regular rate and rhythm , ABDOMEN: Soft , no tenderness EXTREMITIES: Right hand is currently dressed no drainage on the dressing - Labs CBC & Chem 7: 07/21/21 07:17 07/21/21 07:17 Labs: Abnormal Lab Results - Last 24 Hours (Table) 07/21/21 07/21/21 Range/Units 07:17 07:17 RBC 3.48 L (4.10-5.20) X 10*6/uL Hgb 11.5 L (12.0-15.0) g/dL Hct 35.5 L (37.2-46.3) % MCV 102.0 H (80.0-97.0) fL MCH 33.0 H (27.0-32.0) pg BUN 8.0 L (9.0-27.0) mg/dL BUN/Creatinine Ratio 10.00 L (12.00-20.00) Ratio Microbiology - Last 24 Hours (Table) 07/18/21 04:05 Blood Culture - Preliminary Blood No Growth after 72 hours 07/17/21 15:50 Anaerobic Culture - Final Finger - Right Fourth Anaerobic Gm Negative Bacilli Anaerobic Gm Negative Bacilli#2 Assessment and Plan (1) Abscess of finger Current Visit: Yes Status: Acute Code(s): L02.519 - CUTANEOUS ABSCESS OF UNSPECIFIED HAND SNOMED Code(s): 23503574 Plan: 1patient presented to the hospital with open PIP joint fourth finger right and with secondary deep infection failing outpatient oral Augmentin and Keflex therapy s/p debridement and deep cultures which are currently pending 2blood culture has been negative local culture showing Haemophilus species with sensitivities pending and also growing anaerobes 3-patient to continue with the cefepime however will add oral Flagyl to cover for the anaerobes Discharge antibiotics on the basis of final culture Time with Patient: Less than 30
[2021-07-22] MEDS: HYDROcodone/APAP 7.5-325MG 1 EACH TAB PO PRN ×2 (06:20→13:52)
[2021-07-22] MEDS: LACTATED RINGERS 1,000 ML IV SCH (06:22)
[2021-07-22] MEDS: metroNIDAZOLE 500 MG TAB PO SCH (08:15)
[2021-07-22] MEDS: CEFEPIME 2 GM in SODIUM CHLORIDE 0.9% 100 ML IVPB SCH (08:15)
[2021-07-22] MEDS: ENOXAPARIN 40 MG/0.4 ML SYRINGE SQ SCH (08:15)
[2021-07-22] MEDS: SENNOSIDES-DOCUSATE SODIUM 1 EACH TAB PO SCH (08:15)
[2021-07-22 09:26] LABS: African American GFR (CKD) 99.3 (60.0-200.0); Anion Gap 11.4 mmol/L (10.00-18.00); BUN/Creat Ratio 13.18 Ratio (12.00-20.00); Blood Urea Nitrogen 11.2 mg/dL (9.0-27.0); Calcium 8.8 mg/dL (8.7-10.3); Carbon Dioxide 22.6 mmol/L (20.0-27.5); Magnesium 2.1 mg/dL (1.5-2.4); Non-African American GFR(CKD) 85.7 (60.0-200.0); Potassium 4.3 mmol/L (3.5-5.5)
[2021-07-22 09:50] LABS: Basophils # (A) 0.05 X 10*3/uL (0.00-0.10); Basophils % (A) 0.6 %; Eosinophils % (A) 1.2 %; HCT 36.3 % (37.2-46.3); Immature Grans, Automated 0.4 %; Lymphocytes # (A) 2.04 X 10*3/uL (0.90-5.00); Lymphocytes % (A) 24.7 %; MCH 32.8 pg (27.0-32.0); MCHC 33.1 g/dL (32.0-37.0); MCV 99.2 fL (80.0-97.0); Mean Platelet Volume 9.9 fL (9.5-12.2); Monocytes # (A) 0.83 X 10*3/uL (0.20-1.00); NRBC Per 100 WBC 0 /100 WBCS (0.0-0.0); Neutrophils # (A) 5.22 X 10*3/uL (1.80-7.70); Neutrophils % (A) 63.1 %; Platelet Count 315 X 10*3/uL (140-440); RBC 3.66 X 10*6/uL (4.10-5.20); RDW 13.7 % (11.5-14.5); WBC 8.27 X 10*3/uL (4.50-10.00)
--- NOTE | 2021-07-22 10:18 | P.DS ---
Providers Date of admission: 07/17/21 15:46 Expected date of discharge: 07/22/21 Attending physician: Chivo Henderson Consults: 07/17/21 15:10 Consult Physician Urgent Consulting Provider: Lorena Blackwood Consult Reason/Comments: eval finger infection, abx and wound management. Do you want consulting provider notified?: Yes 07/17/21 15:16 Consult Physician Urgent Consulting Provider: Sarah Beth Barry Consult Reason/Comments: Medical management Do you want consulting provider notified?: Yes Primary care physician: Doroteo Dobbs - Discharge Diagnosis(es) (1) Septic arthritis of interphalangeal joint of finger of right hand Current Visit: Yes Status: Acute (2) Abscess of finger Current Visit: Yes Status: Acute (3) Open dislocation of right ring finger Current Visit: Yes Status: Acute Priority: Medium Hospital Course: Gypsy is a 41-year-old [id number] female with a history of deep infection involving the right ring finger. She had an open dislocation of the PIP joint with a volar wound approximately 1 week ago which was reduced in the emergency room and closed. She had been on antibiotics consisting of Keflex and Augmentin but has developed pus drainage from the wound and the wound has completely . I suspect a deep infection into the flexor tendon area as well as the PIP joint. She presents to the operating room for exploration, incision and drainage and surgical treatment of the infection. Consent has been obtained after discussion of the risks of incision and drainage of this abscess as being inclusive of, but not limited to: Bleeding, further infection, scarring, discomfort, blood vessel, tendon, cartilage/joint and/or nerve damage, compartment syndrome, failure to relieve symptoms, persistence or recurrence and/or worsening of symptoms or problems, need for further surgery, stiffness of the finger, loss of finger, , anesthesia risks, and other risks. Gypsy was taken to surgery on 07/17/2021 for irrigation and of the right rin. She has been followed by infectious disease since surgery. She had PICC line inserted yesterday. She may be discharged to home today if Homecare is arragned. Plan - Discharge Summary Discharge Rx Participant: Yes New Discharge Prescriptions: New Gabapentin [Neurontin] 300 mg PO BID 5 Days #10 cap HYDROcodone/APAP 7.5-325MG [[place] 7.5-325] 1 - 2 tab PO Q6H PRN #32 tab PRN Reason: Pain Meloxicam [Mobic] 1 - 2 tab PO DAILY PRN #30 tab PRN Reason: Pain No Action Cephalexin [Keflex] 500 mg PO Q12HR Acetaminophen [Tylenol Arthritis] 650 mg PO Q6H PRN PRN Reason: Pain HYDROcodone/APAP 5-325MG [[place] 5-325] 1 - 2 tab PO Q6HR PRN PRN Reason: Pain Amoxic-Pot Clav 875-125Mg [Augmentin 875-125] 1 tab PO BID Discharge Medication List Acetaminophen [Tylenol Arthritis] 650 mg PO Q6H PRN 07/16/21 [History] Amoxic-Pot Clav 875-125Mg [Augmentin 875-125] 1 tab PO BID 07/16/21 [History] Cephalexin [Keflex] 500 mg PO Q12HR 07/16/21 [History] HYDROcodone/APAP 5-325MG [[place] 5-325] 1 - 2 tab PO Q6HR PRN 07/16/21 [History] HYDROcodone/APAP 7.5-325MG [[place] 7.5-325] 1 - 2 tab PO Q6H PRN #32 tab 07/21/21 [Rx] Gabapentin [Neurontin] 300 mg PO BID 5 Days #10 cap 07/22/21 [Rx] Meloxicam [Mobic] 1 - 2 tab PO DAILY PRN #30 tab 07/22/21 [Rx] Follow up Appointment(s)/Referral(s): [facility], [NON-STAFF] - As Needed [facility],Infusion [NON-STAFF] - 1 Week Chivo Henderson MD [STAFF PHYSICIAN] - 07/30/21 1:30 pm Activity/Diet/Wound Care/Special Instructions: Patient will go to [facility] for antibiotic therapy at discharge. Please call [facility] ([phone]) to inform them of patient discharge. Please follow up with [facility] 1 week and call with any questions or concerns, . May cancel point for tomorrow. Home IV antibiotics and wound care per home care nurse. Discharge Disposition: HOME WITH HOME HEALTH SERVICES
--- NOTE | 2021-07-22 10:24 | P.PN ---
Subjective Progress Note Date: 07/22/21 Patient says her pain is controlled with pain medication. She denies any further fevers, chills. No other issues at this point. Wound culture from the operating room show Haemophilus species growing, as well as one additional anaerobic GN bacteria. Gen: awake, alert HEENT: normocephalic, atraumatic, good hearing acuity, moist mucous membranes Resp: good air exchange, breathing comfortably with no accessory muscle use CVS: good distal perfusion x 4, GI: soft, NTTP, ND : no SPT, no CVAT, mott catheter not present MSK: no pitting edema, no clubbing Neuro: non-focal, moving all extremities Psych: cooperative, euthymic mood Assessment/plan: Right fourth digit deep tissue infection status post I and D -Continue with cefepime, flagyl -Continue to follow microbiology, blood culture preliminary no growth, fungal culture, Gram stain -Wound culture from OR growing haemophilus parainfluenza, and one or two other GN bacteria -Pain control. We'll discontinue [place] and start the patient on IV Toradol 15 mg every 6 hours. Continue Dilaudid. -Continue to follow recommendations as per infectious disease team. Tobacco abuse -Cessation -Nicotine replacement if requested Patient is a full code We'll start DVT prophylaxis with enoxaparin Objective - Vital Signs Vital signs: Vital Signs Temp 98.1 F 07/22/21 07:46 Pulse 62 07/22/21 07:46 Resp 17 07/22/21 07:46 BP 137/71 07/22/21 07:46 Pulse Ox 95 07/22/21 07:46 Intake & Output 07/21/21 07/22/21 07/22/21 18:59 06:59 18:59 Intake Total 1540 Balance 1540 Intake: Intake, IV Titration 400 Amount Cefepime 2 gm In Sodium 100 Chloride 0.9% 100 ml @ 25 mls/hr IVPB Q8HR [facility] Rx# :[id number] Lactated Ringers 1,000 ml 300 @ 100 mls/hr IV .Q10H [facility] Rx#:[id number] Oral 1140 Other: Voiding Method Toilet Toilet # Voids 3 3 # Bowel Movements 1 - Labs CBC & Chem 7: 07/22/21 07:01 07/22/21 07:01 Labs: Abnormal Lab Results - Last 24 Hours (Table) 07/21/21 07/22/21 Range/Units 07:17 07:01 RBC 3.66 L (4.10-5.20) X 10*6/uL Hct 36.3 L (37.2-46.3) % MCV 99.2 H (80.0-97.0) fL MCH 32.8 H (27.0-32.0) pg BUN 8.0 L (9.0-27.0) mg/dL BUN/Creatinine Ratio 10.00 L (12.00-20.00) Ratio Microbiology - Last 24 Hours (Table) 07/18/21 04:05 Blood Culture - Preliminary Blood No Growth after 96 hours 07/17/21 15:50 Gram Stain - Final Finger - Right Fourth Wound Culture - Preliminary Haemophilus parainfluenzae
--- NOTE | 2021-07-22 10:47 | P.PN ---
Progress Note - Text Progress Note Date: 07/22/21 Addendum to discharge summary. Patient will not be discharged on Keflex oral Augmentin. Please see med rec for accurate list of home medications including IV antibiotics.
[2021-07-22 12:14] VITALS: BMI 34.7
--- NOTE | 2021-07-22 13:38 | P.PN ---
Subjective Progress Note Date: 07/22/21 Principal diagnosis: Right fourth finger infection Patient is a 41-year-old female with recent history of trauma to the right fourth finger and concerning for allowing infection status post debridement and deep cultures which are currently pending. On today's evaluation that is 07/22/2021, , The patient remains to be afebrile, the patient pain to the right fourth finger is currently controlled with the pain medication, the P denies having any chest pain shortness of breath or cough no nausea vomiting no abdominal pain and no diarrhea, patient did get a PICC line currently waiting for outpatient robotic arrangement Objective - Vital Signs Vital signs: Vital Signs Temp 98.1 F 07/22/21 07:46 Pulse 62 07/22/21 07:46 Resp 17 07/22/21 07:46 BP 137/71 07/22/21 07:46 Pulse Ox 95 07/22/21 07:46 Intake & Output 07/21/21 07/22/21 07/22/21 18:59 06:59 18:59 Intake Total 1540 Balance 1540 Intake: Intake, IV Titration 400 Amount Cefepime 2 gm In Sodium 100 Chloride 0.9% 100 ml @ 25 mls/hr IVPB Q8HR ALEXEY Rx# :[id number] Lactated Ringers 1,000 ml 300 @ 100 mls/hr IV .Q10H ALEXEY Rx#:[id number] Oral 1140 Other: Voiding Method Toilet Toilet # Voids 3 3 # Bowel Movements 1 - Exam GENERAL DESCRIPTION: A middle-age female lying in bed in no distress RESPIRATORY SYSTEM: Unlabored breathing , decreased breath sounds at bases HEART: S1 S2 regular rate and rhythm , ABDOMEN: Soft , no tenderness EXTREMITIES: Right hand is currently dressed no drainage on the dressing - Labs CBC & Chem 7: 07/22/21 07:01 07/22/21 07:01 Labs: Abnormal Lab Results - Last 24 Hours (Table) 07/22/21 Range/Units 07:01 RBC 3.66 L (4.10-5.20) X 10*6/uL Hct 36.3 L (37.2-46.3) % MCV 99.2 H (80.0-97.0) fL MCH 32.8 H (27.0-32.0) pg Microbiology - Last 24 Hours (Table) 07/18/21 04:05 Blood Culture - Preliminary Blood No Growth after 96 hours 07/17/21 15:50 Gram Stain - Final Finger - Right Fourth Wound Culture - Preliminary Haemophilus parainfluenzae Assessment and Plan (1) Abscess of finger Current Visit: Yes Status: Acute Code(s): L02.519 - CUTANEOUS ABSCESS OF UNSPECIFIED HAND SNOMED Code(s): 80204875 Plan: 1patient presented to the hospital with open PIP joint fourth finger right and with secondary deep infection failing outpatient oral Augmentin and Keflex therapy s/p debridement and deep cultures which are currently pending 2blood culture has been negative local culture showing Haemophilus species Which is beta-lactamase negative and also growing anaerobes 3-patient Antibiotics switched over to Rocephin 2 g daily to continue along with oral Flagyl plan is for at least 4 weeks of antibiotics and a close outpatient follow-up Time with Patient: Less than 30
[2021-07-22] MEDS: GABAPENTIN 300 MG CAP PO PRN (13:53)
[2021-07-22 14:08] VITALS: BP 150/92; PULSE 64; RESP 14; TEMP 98.6
== END 2021-07-22 15:52 | disposition home health service (06) | DRG 513 ==
LOC: OR 13:05 → 4SSUR 15:46
PROVIDERS: ADMIT Orthopaedic Surgery; ATTEND Orthopaedic Surgery
PROC: 0LB70ZZ Excision of Right Hand Tendon, Open Approach (ICD-10-PCS; principal; 2021-07-17 14:20)
PROC: 02HV33Z Insertion of Infusion Device into Superior Vena Cava, Percutaneous Approach (ICD-10-PCS; 2021-07-21)
PROC: B518YZA Fluoroscopy of Superior Vena Cava using Other Contrast, Guidance (ICD-10-PCS; 2021-07-21)
DX: M00.9 Pyogenic arthritis, unspecified (principal); L02.511 Cutaneous abscess of right hand; S63.284A Dislocation of proximal interphalangeal joint of right ring finger, initial encounter; F17.210 Nicotine dependence, cigarettes, uncomplicated; X58.XXXA Exposure to other specified factors, initial encounter; Z91.09 Other allergy status, other than to drugs and biological substances; Z82.49 Family history of ischemic heart disease and other diseases of the circulatory system; Z83.3 Family history of diabetes mellitus
CPT/HCPCS: 36573; 80048; 80053; 80202; 82565; 83735; 85025; 85027; 85652; 86140; 87040; 87070; 87075; 87102; 87116; 87205; 87206

== ENCOUNTER 2021-08-07 14:21 | Observation (INO) | payer OTHER ==
[2021-08-07 16:00] LABS: Basophils % (A) 0 %; Eosinophils # (A) 0.2 k/uL (0-0.7); Eosinophils % (A) 2 %; HCT 42.9 % (34.0-46.0); HGB 14.1 gm/dL (11.4-16.0); Lymphocytes # (A) 2.1 k/uL (1.0-4.8); Lymphocytes % (A) 20 %; MCH 33.6 pg (25.0-35.0); MCV 101.9 fL (80.0-100.0); Macrocytosis Slight; Mean Platelet Volume 7.4; Monocytes # (A) 0.4 k/uL (0-1.0); Monocytes % (A) 4 %; Neutrophils # (A) 8.1 k/uL (1.3-7.7); Neutrophils % (A) 74 %; Platelet Count 269 k/uL (150-450); RBC 4.21 m/uL (3.80-5.40); RDW 13.3 % (11.5-15.5)
[2021-08-07 16:15] LABS: ALT 21 U/L (4-34); AST 24 U/L (14-36); African American GFR (CKD) >90 (>60 ml/min/1.73 sqM); Albumin 4.2 g/dL (3.5-5.0); Alkaline Phosphatase 65 U/L (38-126); Anion Gap 8 mmol/L; Blood Urea Nitrogen 6 mg/dL (7-17); C Reactive Protein <0.5 mg/dL (<1.0); Calcium 8.9 mg/dL (8.4-10.2); Carbon Dioxide 23 mmol/L (22-30); Chloride 107 mmol/L (98-107); Glucose 102 mg/dL (74-99); Non-African American GFR(CKD) >90 (>60 ml/min/1.73 sqM); Sodium 138 mmol/L (137-145); Total Bilirubin 0.5 mg/dL (0.2-1.3); Total Protein 7.3 g/dL (6.3-8.2)
[2021-08-07] MEDS ORDERED: NALOXONE 0.4 MG/ML 1 ML VIAL IV PRN (17:06)
--- NOTE | 2021-08-07 17:06 | ED ---
General Adult HPI - General Chief complaint: Recheck/Abnormal Lab/Rx Stated complaint: post op issues Time Seen by Provider: 08/07/21 15:20 Source: patient Mode of arrival: ambulatory Limitations: no limitations - History of Present Illness Initial comments: 41-year-old female presents to the emergency department with worsening infection in her fourth digit on her right hand. Patient previously had open dislocation injury 1 month ago where she was seen at [facility]. Reduction was performed and sutures were placed. Patient was placed on Keflex and Augmentin. The patient began having increasing pain and swelling. She followed up with Dr. Henderson. On July 17 she had incision and drainage of the finger with debridement. Cultures were obtained. Patient discharged home on July 22. She has been taking Rocephin 2 g daily through her PICC line. Additionally taking Flagyl 3 times daily. She has a home care nurse that has been evaluating her wound. She saw Dr. Henderson last and Dr. Catherine Tuesday. Wound was healing well at that time. Starting Tuesday the patient began having serosanguineous drainage. Tuesday she began having jennifer pus coming from the wound. Home care nurse thought that the wound was looking worse in nature and recommended that she come to the hospital for evaluation. No fevers. Does admit to i ncreasing pain. Redness has extended up onto the palm of the hand. No other alleviating, precipitating factors - Related Data Previous Rx's Medication Instructions Recorded HYDROcodone/APAP 7.5-325MG [[place] 1 - 2 tab PO Q6H PRN #32 tab 07/21/21 7.5-325] cefTRIAXone [Rocephin] 2,000 mg IVP Q24HR #28 each 07/22/21 metroNIDAZOLE [Flagyl] 500 mg PO TID #90 tab 07/22/21 Gabapentin [Neurontin] 300 mg PO BID 5 Days #10 cap 08/14/21 HYDROcodone/APAP 7.5-325MG [[place] 1 - 2 tab PO Q6HR PRN #32 tab 08/14/21 7.5-325] Allergies Allergy/AdvReac Type Severity Reaction Status Date / Time grass pollen Allergy Itching Verified 08/07/21 16:26 Review of Systems ROS Statement: Those systems with pertinent positive or pertinent negative responses have been documented in the HPI. ROS Other: All systems not noted in ROS Statement are negative. Past Medical History Past Medical History: Musculoskeletal Disorder, Osteoarthritis (OA) Additional Past Medical History / Comment(s): fell & injured right ring finger on 07-05-21-wearing splint & dressing, entire hand very swollen History of Any Multi-Drug Resistant Organisms: None Reported Past Surgical History: Tubal Ligation Additional Past Surgical History / Comment(s): vocal cord/polyps removed, ectopic surg., right wrist proximal row carpectomy Past Anesthesia/Blood Transfusion Reactions: No Reported Reaction Past Psychological History: Anxiety, Depression Smoking Status: Current every day smoker Past Alcohol Use History: Occasional Past Drug Use History: Marijuana - Past Family History Mother Family Medical History: Dementia, Thyroid Disorder Father Family Medical History: Coronary Artery Disease (CAD), Diabetes Mellitus General Exam Limitations: no limitations General appearance: alert, in no apparent distress Head exam: Present: atraumatic, normocephalic, normal inspection Eye exam: Present: normal appearance, PERRL, EOMI. Absent: scleral icterus, conjunctival injection, periorbital swelling ENT exam: Present: normal exam, mucous membranes moist Neck exam: Present: normal inspection. Absent: tenderness, meningismus, lymphadenopathy Respiratory exam: Present: normal lung sounds bilaterally. Absent: respiratory distress, wheezes, rales, rhonchi, stridor Cardiovascular Exam: Present: regular rate, normal rhythm, normal heart sounds. Absent: systolic murmur, diastolic murmur, rubs, gallop, clicks GI/Abdominal exam: Present: soft, normal bowel sounds. Absent: distended, tenderness, guarding, rebound, rigid Extremities exam: Present: tenderness (4th digit. surgical incision over ventral aspect. mild surrounding redness. No pustular drainage appreciated at this time. limited flexion of digit due to swelling. intact distal sensation and normal cap refill for digit), normal capillary refill. Absent: pedal edema, calf tenderness Back exam: Present: normal inspection Neurological exam: Present: alert, oriented X3, CN II-XII intact Psychiatric exam: Present: normal affect, normal mood Skin exam: Present: warm, dry, intact, normal color. Absent: rash Course Vital Signs 08/07/21 08/07/21 08/07/21 14:29 16:22 17:11 Temperature 98.2 F Pulse Rate 67 77 85 Respiratory 18 18 18 Rate Blood Pressure 129/84 135/97 133/92 O2 Sat by Pulse 99 99 99 Oximetry Medical Decision Making - Medical Decision Making On arrival patient is placed into room 23. History and physical exam was performed. I did call and speak with [facility] from [facility]. He does discuss the case with Dr. Umana. Agreeable to admission with infectious disease consult. Patient agreed to this plan and was admitted to the floor in stable condition - Lab Data Result diagrams: 08/08/21 06:13 08/08/21 06:13 Lab Results 08/07/21 08/07/21 Range/Units 15:46 15:46 WBC 11.0 H (3.8-10.6) k/uL RBC 4.21 (3.80-5.40) m/uL Hgb 14.1 (11.4-16.0) gm/dL Hct 42.9 (34.0-46.0) % MCV 101.9 H (80.0-100.0) fL MCH 33.6 (25.0-35.0) pg MCHC 33.0 (31.0-37.0) g/dL RDW 13.3 (11.5-15.5) % Plt Count 269 (150-450) k/uL MPV 7.4 Neutrophils % 74 % Lymphocytes % 20 % Monocytes % 4 % Eosinophils % 2 % Basophils % 0 % Neutrophils # 8.1 H (1.3-7.7) k/uL Lymphocytes # 2.1 (1.0-4.8) k/uL Monocytes # 0.4 (0-1.0) k/uL Eosinophils # 0.2 (0-0.7) k/uL Basophils # 0.0 (0-0.2) k/uL Macrocytosis Slight Sodium 138 (137-145) mmol/L Potassium 4.0 (3.5-5.1) mmol/L Chloride 107 (98-107) mmol/L Carbon Dioxide 23 (22-30) mmol/L Anion Gap 8 mmol/L BUN 6 L (7-17) mg/dL Creatinine 0.74 (0.52-1.04) mg/dL Est GFR (CKD-EPI)AfAm >90 (>60 ml/min/1.73 sqM) Est GFR (CKD-EPI)NonAf >90 (>60 ml/min/1.73 sqM) Glucose 102 H (74-99) mg/dL Calcium 8.9 (8.4-10.2) mg/dL Total Bilirubin 0.5 (0.2-1.3) mg/dL AST 24 (14-36) U/L ALT 21 (4-34) U/L Alkaline Phosphatase 65 (38-126) U/L C-Reactive Protein <0.5 (<1.0) mg/dL Total Protein 7.3 (6.3-8.2) g/dL Albumin 4.2 (3.5-5.0) g/dL Disposition Clinical Impression: Septic arthritis of interphalangeal joint of finger of right hand Disposition: ADMITTED IP TO THIS [facility] Condition: Stable Is patient prescribed a controlled substance at d/c from ED?: No Decision to Admit Reason: Admit from EC Decision Date: 08/07/21 Decision Time: 17:06
[2021-08-07] MEDS: metroNIDAZOLE 500 MG TAB PO SCH ×2 (17:20→23:24)
[2021-08-07] MEDS: HYDROcodone/APAP 7.5-325MG 1 EACH TAB PO PRN ×2 (17:20→23:24)
--- NOTE | 2021-08-07 18:40 | XR ---
EXAMINATION TYPE: XR hand complete RT DATE OF EXAM: 08/07/2021 COMPARISON: NONE HISTORY: Infection TECHNIQUE: 3 views FINDINGS: There is some soft tissue swelling of the ring finger. There is some mild soft tissue swell ing around the PIP joint of the middle finger. No fracture seen. The metacarpals are intact. Finger J oint spaces are fairly normal. There is deformity of the carpus with absence of the lunate and most o f the scaphoid bone. There is spur formation and mild sclerosis. IMPRESSION: Soft tissue swelling. No evidence of osteomyelitis. No fracture seen. There is noted deformity of the carpus with bone loss and probably postsurgical changes.
--- NOTE | 2021-08-07 23:56 | P.CONS ---
History of Present Illness - Reason for Consult Consult date: 08/07/21 Right fourth finger infection Requesting physician: Mei Mohan - Chief Complaint Worsening drainage into the right fourth finger x 2 days - History of Present Illness Patient is a 41-year-old female was recently admitted at this facility in this patient who did have a traumatic wound to the right fourth finger and this patient was status post surgical debridement and deep culture which was subsequently finalized with Haemophilus influenzae and anaerobes patient did get a midline and was currently getting Rocephin 2 g daily along with oral Flagyl, patient was seen in the office on 08/03/2021 and the patient was doing better patient mention 2 days later she started having more purulent drainage from her right fourth finger palmar aspect wound, patient currently being evaluated by home care nurse and apparently the home care nurse advised the patient to go to the ER after looking at the picture dose was sent by the patient to her patient complaining of pain to be dull aching to throbbing intensity 7-8 out of 10 and no radiation" she did have mild purulent drainage and is complaining of swelling with the symptoms the patient was evaluated by ER physician on arrival to the ER the patient was afebrile patient did have white count of 11,000 with a left shift creatinine was normal CRP was normal patient was admitted to the hospital continued on Rocephin and Flagyl infectious disease was consulted for further management of antibiotic therapy Review of Systems Positive point has been mentioned in the HPI rest of the systems are negative Past Medical History Past Medical History: Musculoskeletal Disorder, Osteoarthritis (OA) Additional Past Medical History / Comment(s): fell & injured right ring finger on 07-05-21-wearing splint & dressing, entire hand very swollen History of Any Multi-Drug Resistant Organisms: None Reported Past Surgical History: Tubal Ligation Additional Past Surgical History / Comment(s): vocal cord/polyps removed, ectopic surg., right wrist proximal row carpectomy Past Anesthesia/Blood Transfusion Reactions: No Reported Reaction Past Psychological History: Anxiety, Depression Smoking Status: Current every day smoker Past Alcohol Use History: Occasional Past Drug Use History: Marijuana - Past Family History Mother Family Medical History: Dementia, Thyroid Disorder Father Family Medical History: Coronary Artery Disease (CAD), Diabetes Mellitus Medications and Allergies Home Medications Medication Instructions Recorded Confirmed Type HYDROcodone/APAP 7.5-325MG [[place] 1 - 2 tab PO Q6H PRN #32 tab 07/21/21 08/07/21 Rx 7.5-325] cefTRIAXone [Rocephin] 2,000 mg IVP Q24HR #28 each 07/22/21 08/07/21 Rx metroNIDAZOLE [Flagyl] 500 mg PO TID #90 tab 07/22/21 08/07/21 Rx Allergies Allergy/AdvReac Type Severity Reaction Status Date / Time grass pollen Allergy Itching Verified 08/07/21 16:26 Physical Exam Vitals: Vital Signs Temp Pulse Resp BP Pulse Ox 08/07/21 17:11 85 18 133/92 99 08/07/21 16:22 77 18 135/97 99 08/07/21 14:29 98.2 F 67 18 129/84 99 Intake and Output 08/07/21 08/07/21 08/07/21 06:59 14:59 22:59 Other: Weight 97.976 kg GENERAL DESCRIPTION: Middle-aged female lying in bed, no distress. No tachypnea or accessory muscle of respiration use. HEENT: Shows Pallor , no scleral icterus. Oral mucous membrane is dry. No pharyngeal erythema or thrush NECK: Trachea central, no thyromegaly. LUNGS: Unlabored breathing. Clear to auscultation anteriorly. No wheeze or crackle. HEART: S1, S2, regular rate and rhythm. No loud murmur ABDOMEN: Soft, no tenderness , guarding or rigidity, no organomegaly EXTREMITIES: Right fourth finger wound on the palmar aspect there is no soft tissue lower and did have minimal purulent drainage was cultured SKIN: No rash, no masses palpable. NEUROLOGICAL: The patient is awake, alert, oriented x3, mood and affect normal. Results CBC & Chem 7: 08/07/21 15:46 08/07/21 15:46 Labs: Abnormal Lab Results - Last 24 Hours (Table) 08/07/21 08/07/21 Range/Units 15:46 15:46 WBC 11.0 H (3.8-10.6) k/uL MCV 101.9 H (80.0-100.0) fL Neutrophils # 8.1 H (1.3-7.7) k/uL BUN 6 L (7-17) mg/dL Glucose 102 H (74-99) mg/dL Assessment and Plan (1) Septic arthritis of interphalangeal joint of finger of right hand Current Visit: Yes Status: Acute Code(s): M00.9 - PYOGENIC ARTHRITIS, UNSPECIFIED SNOMED Code(s): 639144530 (2) Abscess of finger Current Visit: No Status: Acute Code(s): L02.519 - CUTANEOUS ABSCESS OF UNSPECIFIED HAND SNOMED Code(s): 30287697 Plan: 1patient with a history of right fourth finger traumatic injury subsequent developing infection in this patient with s/p debridement on her last admission culture positive for haemophilus and anaerobes and the patient was treated with Rocephin and Flagyl no presented to hospital with purulent drainage and swelling possible secondary infection with a different pathogen not entirely excluded 2local culture has been obtained to guide further antibiotic therapy and the patient may benefit from further surgical debridement and deep culture. 3we will obtain x-rays of the right hand as well as sed rate 4-we we will continue patient on Rocephin and Flagyl. We will follow on clinical condition and cultures to further adjust medication if needed Thank you for this consultation will follow this patient along with you
[2021-08-08 07:12] VITALS: BP 119/74; PULSE 79; RESP 20; TEMP 98.1
[2021-08-08] MEDS: metroNIDAZOLE 500 MG TAB PO SCH (07:44)
[2021-08-08] MEDS: HYDROcodone/APAP 7.5-325MG 1 EACH TAB PO PRN ×2 (07:50→09:04)
[2021-08-08 08:50] LABS: Basophils # (A) 0.06 X 10*3/uL (0.00-0.10); Basophils % (A) 0.8 %; Eosinophils # (A) 0.16 X 10*3/uL (0.04-0.35); Eosinophils % (A) 2.2 %; HCT 40.5 % (37.2-46.3); HGB 13.4 g/dL (12.0-15.0); Immature Grans, Automated 0.3 %; Lymphocytes # (A) 2.51 X 10*3/uL (0.90-5.00); Lymphocytes % (A) 34.6 %; MCH 32.5 pg (27.0-32.0); MCHC 33.1 g/dL (32.0-37.0); MCV 98.3 fL (80.0-97.0); Mean Platelet Volume 9.9 fL (9.5-12.2); Monocytes # (A) 0.71 X 10*3/uL (0.20-1.00); Monocytes % (A) 9.8 %; NRBC Per 100 WBC 0 /100 WBCS (0.0-0.0); Neutrophils % (A) 52.3 %; Platelet Count 249 X 10*3/uL (140-440); RBC 4.12 X 10*6/uL (4.10-5.20); RDW 13.9 % (11.5-14.5); WBC 7.26 X 10*3/uL (4.50-10.00)
[2021-08-08] MEDS ORDERED: CEFTRIAXONE IV SCH (09:00)
[2021-08-08 09:04] LABS: African American GFR (CKD) 125.6 (60.0-200.0); Anion Gap 7.2 mmol/L (10.00-18.00); BUN/Creat Ratio 11.43 Ratio (12.00-20.00); Calcium 8.8 mg/dL (8.7-10.3); Carbon Dioxide 25.8 mmol/L (20.0-27.5); Non-African American GFR(CKD) 108.4 (60.0-200.0); Potassium 4.1 mmol/L (3.5-5.5)
--- NOTE | 2021-08-08 09:30 | P.HPOR ---
History of Present Illness H&P Date: 08/08/21 Patient is seen and examined today at bedside. She is a very pleasant 41-year-old female who had an injury to her right ring finger with open dislocation at the PIP joint. It was initially reduced but subsequently developed infectious issue and underwent open irrigation and debridement with Dr. Hernandez about 3 and half weeks ago. Since that time she's been followed closely with his service for wound issues and has been going through prolonged healing process. She has been on IV antibiotics as per Dr. Blackwood over this time As well. She says the that she has been making good progress over the past few weeks and the wound has been healing slowly but steadily. However over the past couple days she noticed a little bit of increased swelling at the volar aspect of her proximal phalanx and she notes some cloudy drainage at the site. She has been followed with her wound care nurse as well for her IV antibiotics and was fragmented to present to the emergency room for further evaluation. The patient denies any fevers. She does say that it has felt a little bit more tight at the base of her finger. She is not having other problems her hand or her other fingers. There has not been significant redness. She denies any new injury. She says she did feel some cramping-type sensations at her pelvis which she is not sure if they're related. She says her urine has been somewhat pungent and she has had some diarrhea due to the Flagyl. Review of Systems As stated per HPI. Denies any fevers chills. She says the finger has been making progress and she has no new injury. She did mention the cloudy drainage as stated in HPI. Past Medical History Past Medical History: Musculoskeletal Disorder, Osteoarthritis (OA) Additional Past Medical History / Comment(s): fell & injured right ring finger on 07-05-21-wearing splint & dressing, entire hand very swollen History of Any Multi-Drug Resistant Organisms: None Reported Past Surgical History: Tubal Ligation Additional Past Surgical History / Comment(s): vocal cord/polyps removed, ectopic surg., right wrist proximal row carpectomy Past Anesthesia/Blood Transfusion Reactions: No Reported Reaction Past Psychological History: Anxiety, Depression Smoking Status: Current every day smoker Past Alcohol Use History: Occasional Past Drug Use History: Marijuana - Past Family History Mother Family Medical History: Dementia, Thyroid Disorder Father Family Medical History: Coronary Artery Disease (CAD), Diabetes Mellitus Medications and Allergies Home Medications Medication Instructions Recorded Confirmed Type HYDROcodone/APAP 7.5-325MG [[place] 1 - 2 tab PO Q6H PRN #32 tab 07/21/21 08/07/21 Rx 7.5-325] cefTRIAXone [Rocephin] 2,000 mg IVP Q24HR #28 each 07/22/21 08/07/21 Rx metroNIDAZOLE [Flagyl] 500 mg PO TID #90 tab 07/22/21 08/07/21 Rx Allergies Allergy/AdvReac Type Severity Reaction Status Date / Time grass pollen Allergy Itching Verified 08/07/21 16:26 Physical Examination Osteopathic Statement: *. No significant issues noted on an osteopathic structural exam other than those noted in the History and Physical/Consult. - Wrist & Hand right Ring finger pain modifiers: at rest (At the base of the MCP volarly we are able to express a scant amount of cloudy fluid. There is no streaking in her hand there is no redness at her palm there is no streaking out distally into her finger. Her other fingers are uninvolved. She has minimal tenderness to palpation over the area.), other (I saw pictures on her phone as compared to her current physical exam. The healing has been making significant progress in the wound is nearly closed. There is a small 3 mm area at the volar PIP joint which is still open. At the base of the MCP volarly we're able to express a scant amount of cloud) Results - Labs Labs: Abnormal Lab Results - Last 24 Hours (Table) 08/07/21 08/07/21 08/08/21 Range/Units 15:46 15:46 06:13 WBC 11.0 H (3.8-10.6) k/uL MCV 101.9 H 98.3 H (80.0-100.0) fL MCH 32.5 H (27.0-32.0) pg Neutrophils # 8.1 H (1.3-7.7) k/uL Anion Gap (10.00-18.00) mmol/L BUN 6 L (7-17) mg/dL BUN/Creatinine Ratio (12.00-20.00) Ratio Glucose 102 H (74-99) mg/dL 04/16/22 Range/Units 06:13 WBC (3.8-10.6) k/uL MCV (80.0-100.0) fL MCH (27.0-32.0) pg Neutrophils # (1.3-7.7) k/uL Anion Gap 7.20 L (10.00-18.00) mmol/L BUN 8.0 L (7-17) mg/dL BUN/Creatinine Ratio 11.43 L (12.00-20.00) Ratio Glucose (74-99) mg/dL Microbiology - Last 24 Hours (Table) 08/07/21 17:58 Wound Culture - Preliminary Hand - Right H & H 08/07/21 08/08/21 Range/Units 15:46 06:13 Hgb 14.1 13.4 (11.4-16.0) gm/dL Hct 42.9 40.5 (34.0-46.0) % Result Diagrams: 08/08/21 06:13 08/08/21 06:13 - Diagnostic results Wrist/Hand x-ray: image reviewed (X-rays do not show any new dislocation or bony erosion or evidence of osteomyelitis) Assessment and Plan Assessment: Open dislocation right ring finger status post reduction and open irrigation and debridement approximately 3-1/2 weeks ago Long-term IV antibiotics with Flagyl and Rocephin via PICC line at home Slight increase of drainage at the base of the finger with slightly elevated white blood count which has improved today Plan: Open dislocation right ring finger status post reduction and open irrigation and debridement approximately 3-1/2 weeks ago Long-term IV antibiotics with Flagyl and Rocephin via PICC line at home Slight increase of drainage at the base of the finger with slightly elevated white blood count which has improved today The patient's finger has been making progress over the past several weeks but she had some increase of the drainage of the base. There is some cloudiness to this suggesting pus and her white count was elevated to 11. There is no streaking at the remainder of her hand or fingers. She had a new culture taken by Dr. Blackwood yesterday and the cultures of which are pending. Her white count today is improving and down to 7. There is no swelling or evidence of tenosynovitis. There is no evidence of possible myelitis and the digit. This seems to be local over the site and may continue to improve with the IV antibiotic that she is on. I appreciate the culture that was taken and we can follow the results of that to consider further antibiotic regimen. I think it is okay for her to continue her IV antibiotics as she has been using thus far. Given the look of her hand I do not think that I would pursue surgical intervention today. The patient is quite comfortable and I think it is okay for her to go home today for close observation and we can see her back in the of [facility] with Dr. Henderson's service on Tuesday for recheck evaluation. If it is worsening she may need open debridement again however if she is making improvement she can continue her antibiotic regimen and consider changes depending on the culture results from yesterday. I discussed this with her at length and she is comfortable with going home with close follow-up in the office.
== END 2021-08-08 10:12 | disposition home health service (06) ==
LOC: EC 14:21 → 6NMEDSUR 17:06
PROVIDERS: ADMIT Orthopaedic Surgery Orthopaedic Surgery of the Spine; ATTEND Orthopaedic Surgery Orthopaedic Surgery of the Spine
DX: T81.49XA Infection following a procedure, other surgical site, initial encounter (principal); L02.511 Cutaneous abscess of right hand; S69.91XA Unspecified injury of right wrist, hand and finger(s), initial encounter; M00.9 Pyogenic arthritis, unspecified; Z95.828 Presence of other vascular implants and grafts; J30.1 Allergic rhinitis due to pollen; M19.90 Unspecified osteoarthritis, unspecified site; F32.A Depression, unspecified; F41.9 Anxiety disorder, unspecified; F17.200 Nicotine dependence, unspecified, uncomplicated; R19.7 Diarrhea, unspecified; T37.3X5A Adverse effect of other antiprotozoal drugs, initial encounter; R82.998 Other abnormal findings in urine; D72.829 Elevated white blood cell count, unspecified; Z79.899 Other long term (current) drug therapy; Z83.3 Family history of diabetes mellitus; Z82.49 Family history of ischemic heart disease and other diseases of the circulatory system; Z81.8 Family history of other mental and behavioral disorders; Z83.49 Family history of other endocrine, nutritional and metabolic diseases
CPT/HCPCS: 96365; 96372; 99284; 36415; 80053; 80048; 85652; 85025 ×2; 86140; 87040; 87070; 87205; 73130; G0378 ×2; J0696; J1642

== ENCOUNTER 2021-08-14 11:10 | Day surgery (SDC) | payer OTHER ==
[2021-08-14 11:19] VITALS: RESP 16; TEMP 97.6
[2021-08-14] MEDS ORDERED: LACTATED RINGERS 1,000 ML IV ONE (11:23)
[2021-08-14] MEDS ORDERED: ONDANSETRON 4 MG/2 ML VIAL ONE (11:26)
[2021-08-14] MEDS ORDERED: DEXAMETHASONE SOD PHOSPHATE 10 MG/ML 1 ML VIAL IVP ONE (11:28)
[2021-08-14] MEDS ORDERED: ONDANSETRON 4 MG/2 ML VIAL IVP ONE (11:29)
[2021-08-14] MEDS ORDERED: fentaNYL (PF) 50 MCG/ML 2 ML AMP ONE (11:55)
[2021-08-14] MEDS ORDERED: PROPOFOL 10 MG/ML 20 ML VIAL IV ONE (11:55)
[2021-08-14] MEDS ORDERED: SUCCINYLCHOLINE CHLORIDE 100 MG/5 ML SYR IV ONE (11:55)
[2021-08-14] MEDS ORDERED: MIDAZOLAM 2 MG/2 ML VIAL ONE (11:55)
[2021-08-14] MEDS ORDERED: HYDROmorphone (PF) 1 MG/ML ONE (11:55)
[2021-08-14] MEDS ORDERED: LIDOCAINE 1% INJ 10MG/ML (20 ML MDV) ONE (11:55)
[2021-08-14] MEDS ORDERED: ceFAZolin 1,000 MG in SODIUM CHLORIDE 0.9% 1,000 ML IRRIGATION ONE ×4 (12:16)
[2021-08-14] MEDS ORDERED: BUPIVACAINE (PF) 0.25% 30 ML VIAL SQ ONE (12:26)
[2021-08-14] MEDS ORDERED: HYDROmorphone 1 MG/ML 1 ML SYRINGE IVP ONE (13:00)
[2021-08-14] MEDS ORDERED: KETOROLAC 15 MG/ML 1 ML VIAL IVP ONE (13:03)
[2021-08-14] MEDS ORDERED: HYDROcodone/APAP 7.5-325MG 1 EACH TAB ONE (13:55)
[2021-08-14] MEDS ORDERED: HYDROcodone/APAP 7.5-325MG 1 EACH TAB PO ONE (13:57)
[2021-08-14 14:26] VITALS: BP 132/81; PULSE 72
--- NOTE | 2021-08-14 14:32 | P.OP ---
Date of Procedure: 08/14/21 Procedure(s) Performed: PREOPERATIVE DIAGNOSES: 1. Right ring finger volar abscess status post open PIP joint dislocation with subsequent infection 2. Severe PIP joint stiffness right ring finger POSTOPERATIVE DIAGNOSES: 1. Right ring finger infection status post open PIP joint dislocation with subsequent infection, no evidence of pus pocket 2. Severe PIP joint stiffness right ring finger 3. Extremely compromised flexor tendons right ring finger with approximately 25% remaining viable tendons of both FDS and FDP in infection zone of proximal phalanx PROCEDURES PERFORMED: 1. Right ring finger irrigation and debridement [with sharp excisional debridement using knife of skin, subcutaneous, fascia, tendon] 2. Light superficial packing of resultant wound with iodoform gauze 3. Gentle manipulation of PIP joint under anesthesia with resultant motion from 0 to 35 ANESTHESIA: Gen. [employer] SUPERVISOR: Irene Irving PA-C (assistance with exposure, hemostasis, retraction, fixation, closure, dressing, splint) COMPLICATIONS: None ESTIMATED BLOOD LOSS: 2 mL. DISPOSITION: To post-anesthesia care unit INDICATIONS: Gypsy is a 41-year-old female with a history of traumatic open dislocation of PIP joint with resulting abscess involving the wound. She has had 2 previous debridements of this finger due to infection. She is currently on IV antibiotics with local wound care. Recently, she experienced some pus drainage from the wounds and I discussed the case with Dr. Pardo and we decided to proceed with operative investigation of this finger once again. She presents to the operating room for exploration, irrigation, debridement, evaluation of flexor tendons, evaluation of PIP joint. Consent has been obtained after discussion of the risks of incision and drainage of this abscess as being inclusive of, but not limited to: Bleeding, further infection, scarring, discomfort, blood vessel, tendon and/or nerve damage, failure to relieve symptoms, persistence or recurrence and/or worsening of symptoms or problems, need for further surgery, stiffness, loss of finger, anesthesia risks, and other risks. PROCEDURE: After appropriate consent was obtained, the patient was taken to the operating room placed in the supine position. Anesthesia was initiated, and after confirmation of adequate anesthesia, the patient was carefully positioned. Care was taken to make sure that all pressure points were adequately padded. Prepping and draping of the right upper extremity were completed in the usual aseptic fashion using Hibiclens. Timeout was called, confirming patient identity, side, and procedure. Antibiotics were not given. Limb was exsanguinated with elevation and the tourniquet was inflated to 250 mmHg. Incisions were reopened in standard Mariela fashion with 1 additional leg added distally to evaluate the area near the DIP joint. No pus was encountered along the course of the incision. Incision was carried down to the remnants of the flexor tendons. Should be noted that between the PIP joint and MCP joint of the ring finger, there was no significant visible viable tendon sheath. Culture was taken at this location. A preliminary irrigation was performed superficially with saline. Deeper dissection down to expose the tendon fully showed that the area of tendon volar to the proximal phalanx was significantly attenuated by the previous infection. The tendons appeared to be in ragged condition with no significant mobility proximally or distally. Ragged frayed material from the tendon surface of both tendons was removed sharply using a knife. The remaining tendons were approximately 25% of their normal diameter. The tendons were retracted so that the PIP joint could be evaluated. Significant scar tissue was present on the volar surface of the PIP joint and this was removed using a small rongeur. Evaluation of the finger from DIP joint to MCP joint showed no areas of collections of pus or purulent material. The soft tissues present here appeared to be the result of previous infection with scar tissue involvement of the wound, although low-grade indolent superficial infection of these tissues could not be ruled out. Thorough irrigation of the joint was performed using saline. The joint was then gently tested for mobility and found with gentle deliberate manipulation to obtain approximately 35 of flexion. Low pressure high volume lavage was used, delivering 1 L of saline to the wound. During this time, small amount of Hibiclens solution was also applied to the wound surface, allowed to soak into the tissues for 1 minute, and then rinsed off using the lavage. Hemostasis was performed with pressure over the wound and application of a snug dressing. Wound was lightly superficially packed with quarter-inch iodoform gauze and additional gauze sterile dressing was then applied. Patient tolerated the procedure well and taken to recovery room in stable condition. Sponge counts were correct.
== END 2021-08-14 14:53 | disposition home or self-care (01) ==
LOC: OR 11:10
PROVIDERS: ATTEND Orthopaedic Surgery
DX: L02.511 Cutaneous abscess of right hand (principal); M25.60 Stiffness of unspecified joint, not elsewhere classified; Z98.890 Other specified postprocedural states
CPT/HCPCS: 11043; 26340; 81025; 87070; 87205; 87075; J2250; J1100; J2405; J0690; J2001; J3010; J1170; J1885; J0330; J2704

== ENCOUNTER → 2021-09-23 | Outpatient (CLI) | payer OTHER ==
[2021-09-23 18:11] LABS: Basophils # (A) 0.04 X 10*3/uL (0.00-0.10); Basophils % (A) 0.4 %; Eosinophils # (A) 0.05 X 10*3/uL (0.04-0.35); Eosinophils % (A) 0.5 %; HCT 42.5 % (37.2-46.3); HGB 13.6 g/dL (12.0-15.0); Immature Grans, Automated 0.3 %; Lymphocytes # (A) 2.47 X 10*3/uL (0.90-5.00); Lymphocytes % (A) 25.3 %; MCH 31.3 pg (27.0-32.0); MCV 97.9 fL (80.0-97.0); Mean Platelet Volume 10.1 fL (9.5-12.2); Monocytes # (A) 0.66 X 10*3/uL (0.20-1.00); Monocytes % (A) 6.7 %; NRBC Per 100 WBC 0 /100 WBCS (0.0-0.0); Neutrophils # (A) 6.53 X 10*3/uL (1.80-7.70); Neutrophils % (A) 66.8 %; Platelet Count 259 X 10*3/uL (140-440); RBC 4.34 X 10*6/uL (4.10-5.20); RDW 14.3 % (11.5-14.5); WBC 9.78 X 10*3/uL (4.50-10.00)
[2021-09-23 18:21] LABS: ALT 41 U/L (8-44); AST 34 U/L (13-35); African American GFR (CKD) 112.8 (60.0-200.0); Albumin 4.6 g/dL (3.8-4.9); Albumin/Globulin Ratio 1.63 (1.60-3.17); Alkaline Phosphatase 62 U/L (41-126); BUN/Creat Ratio 10.35 Ratio (12.00-20.00); Blood Urea Nitrogen 7.9 mg/dL (9.0-27.0); C Reactive Protein <0.30 mg/dL (0.00-0.80); Calcium 9.5 mg/dL (8.7-10.3); Carbon Dioxide 25.5 mmol/L (20.0-27.5); Chloride 103 mmol/L (96-109); Globulin 2.8 g/dL (1.6-3.3); Glucose 89 mg/dL (70-110); Non-African American GFR(CKD) 97.4 (60.0-200.0); Potassium 4.4 mmol/L (3.5-5.5); Sodium 140 mmol/L (135-145); Total Protein 7.4 g/dL (6.2-8.2)
[2021-09-23 18:40] LABS: Erythrocyte Sedimentation Rate 19 mm/Hr (0-20)
== END | disposition home or self-care (01) ==
LOC: LABWHC1 14:14
PROVIDERS: ATTEND Internal Medicine Infectious Disease
DX: M00.9 Pyogenic arthritis, unspecified (principal); Z98.890 Other specified postprocedural states
CPT/HCPCS: 36415; 80053; 85025; 85652; 86140

== ENCOUNTER → 2023-06-16 | Outpatient (CLI) | payer OTHER ==
[2023-06-16 15:57] LABS: HCT 42.7 % (37.2-46.3); HGB 14.3 g/dL (12.0-15.0); MCH 31.4 pg (27.0-32.0); MCHC 33.5 g/dL (32.0-37.0); MCV 93.8 FL (80.0-97.0); Mean Platelet Volume 9.9 FL (9.5-12.2); NRBC Per 100 WBC 0 X 10*3/uL (0.00-0.01); Platelet Count 267 X 10*3/uL (140-440); RBC 4.55 X 10*6/uL (4.10-5.20); RDW 15.2 % (11.5-14.5); WBC 6.71 X 10*3/uL (4.50-10.00)
[2023-06-16 16:16] LABS: Erythrocyte Sedimentation Rate 28 mm/Hr (0-20)
[2023-06-16 16:28] LABS: ALT 16 U/L (8-44); AST 17 U/L (13-35); Albumin 4.3 g/dL (3.8-4.9); Albumin/Globulin Ratio 1.72 Ratio (1.60-3.17); Alkaline Phosphatase 62 U/L (41-126); BUN/Creat Ratio 8.88 Ratio (12.00-20.00); Blood Urea Nitrogen 7.1 mg/dL (9.0-27.0); Calcium 9.3 mg/dL (8.7-10.3); Carbon Dioxide 22.6 mmol/L (21.6-31.8); Chloride 106 mmol/L (96-109); Chol/HDL Ratio 4.77 Ratio; Globulin 2.5 g/dL (1.6-3.3); Glucose 123 mg/dL (70-110); LDL Cholesterol,Calculated 159.5 mg/dL (0.0-131.0); Potassium 4.2 mmol/L (3.5-5.5); Sodium 141 mmol/L (135-145); T4, Free (Free Thyroxine) 1.19 ng/dL (0.80-1.80); Total Bilirubin 0.3 mg/dL (0.3-1.2); Total Protein 6.8 g/dL (6.2-8.2); VLDL Calculation 15.24 mg/dL (5.00-40.00)
[2023-06-16 21:54] LABS: Albumin 4.4 g/dL (3.8-4.9); Protein, Total 6.9 g/dL (6.2-8.2)
[2023-06-17 16:45] LABS: Gamma Globulin 0.81 g/dL (0.70-1.50)
== END | disposition home or self-care (01) ==
LOC: LABWHC1 09:30
PROVIDERS: ATTEND Internal Medicine
DX: R41.3 Other amnesia (principal)
CPT/HCPCS: 36415; 80053; 80061; 82607; 83036; 84165; 84439; 84443; 85027; 85652; 86038